=== PATIENT | male | born 1950 | race Caucasian/White ===

== ENCOUNTER 2019-07-31 07:20 | Outpatient (CLI) | payer MEDICARE, SELFPAY ==
--- NOTE | ~2019-07-31 | US_ITS ---
EXAMINATION: US abdomen complete EXAM DATE: 07/31/2019 08:17 INDICATION: Postop abdominal pain and bloating. History of melanoma. TECHNIQUE: Multiple grayscale and Doppler images of the complete abdomen were obtained (by a technolo gist who performed the scan) and subsequently reviewed. There is no prior study for comparison. FINDINGS: The abdominal aorta is normal in caliber. Visualized portion IVC is patent. The pancreatic head a nd body are normal in appearance. The pancreatic tail is not visualized. The liver has normal echogenicity and contour. There are no focal liver lesions identified. There is no evidence of intrahepatic biliary duct dilation. Portal venous flow was seen in the hepatopedal , normal direction and has normal Doppler waveform. Common bile duct measures 6 mm, which is normal. The gallbladder wall is normal in thickness, with ex pected amount of distention. No sonographic evidence of pericholecystic fluid. There is no cholelit hiases. Technologist performing exam reports patient did not demonstrate sonographic Jasso's sign. Please note that this sign is less reliable in patients who have received pain medication. Right kidney: There is normal contour and echogenicity. It measures 10.5 x 6.3 x 4.7 centimeters. There are no focal renal lesions identified. There is no hydronephrosis. Left kidney: There is normal contour and echogenicity. It measures 11.2 x 5.4 x 5.6 centimeters. T here are no focal renal lesions identified. There is no hydronephrosis. There are splenic calcified granulomata, but spleen is otherwise morphologically normal. IMPRESSION: 1. Unremarkable complete abdominal ultrasound exam. Reviewed, dictated and finalized at location A. T FINISHER
== END 2019-07-31 07:21 | disposition home or self-care (01) ==
LOC: ANHIMG 07:21
PROVIDERS: PCP Internal Medicine; Visit Provider Internal Medicine
DX: G89.18 Other acute postprocedural pain (principal); R10.9 Unspecified abdominal pain; Z86.006 Personal history of melanoma in-situ
CPT/HCPCS: 76700

== ENCOUNTER 2019-12-09 10:09 | Outpatient (CLI) | payer MEDICARE, SELFPAY ==
[2019-12-09 10:37] LABS: Add Urine Microscopic? YES; Appearance Urine Clear (Clear); Bilirubin Urine Negative (Negative); Blood Urine Negative (Negative); Color Urine Yellow (Yellow); Glucose Urine UA Negative (Negative); Ketones Urine Negative (Negative); Leukocyte Esterase Ur Trace LEU/UL (NEGATIVE); Mucus Urine Rare /lpf; Nitrate Urine Negative (Negative); Protein Urine Negative (Negative); RBC Urine 0-2 /hpf (0-2); Specific Grav Ur 1.015 (1.001-1.035); Squamous Epithelial Cell Urine Rare /hpf (Few); Urobilinogen Urine Negative mg/dL (<2.0); WBC Urine 0-3 /hpf (0-3)
== END 2019-12-09 10:10 | disposition home or self-care (01) ==
PROVIDERS: PCP Internal Medicine; Visit Provider Internal Medicine
DX: R30.0 Dysuria (principal)
CPT/HCPCS: 81001; 87086

== ENCOUNTER 2020-09-16 11:22 | Outpatient (CLI) | payer MEDICARE, SELFPAY ==
--- NOTE | ~2020-09-16 | XR_ITS ---
EXAMINATION: XR chest 2V DATE: 09/16/2020 11:33 INDICATION: Personal history of melanoma in situ. TECHNIQUE: Frontal and lateral views of the chest were obtained. COMPARISON: Chest 2 views 10/28/2018 FINDINGS: A calcified right lung nodule and calcified right hilar and mediastinal lymph nodes are con sistent with old granulomatous disease. No pleural effusion or pneumothorax. The heart size is normal . IMPRESSION: 1. No acute cardiopulmonary disease. Reviewed, dictated and finalized at location A.
== END 2020-09-16 11:23 | disposition home or self-care (01) ==
PROVIDERS: PCP Internal Medicine; Visit Provider Internal Medicine
DX: Z86.006 Personal history of melanoma in-situ (principal)
CPT/HCPCS: 71046

== ENCOUNTER 2021-06-17 07:38 | Outpatient (CLI) | payer MEDICARE, SELFPAY ==
--- NOTE | ~2021-06-17 | XR_ITS ---
EXAMINATION: XR chest 2V DATE: 06/17/2021 07:57 INDICATION: Melanoma. TECHNIQUE: Frontal and lateral views of the chest were obtained. COMPARISON: Chest 2 views 09/16/2020 FINDINGS: Calcified right lung nodules and calcified right hilar and mediastinal lymph nodes are cons istent with old granulomatous disease. No pleural effusion or pneumothorax. The heart size is normal. IMPRESSION: 1. No acute cardiopulmonary disease. Reviewed, dictated and finalized at location A. [id number] [id number] [employer] CRE[employer]
== END 2021-06-17 07:39 | disposition home or self-care (01) ==
PROVIDERS: PCP Internal Medicine; Visit Provider Internal Medicine
DX: Z86.006 Personal history of melanoma in-situ (principal)
CPT/HCPCS: 71046

== ENCOUNTER 2021-11-14 15:03 | Inpatient (IN) | payer MEDICARE, SELFPAY ==
[2021-11-14] VITALS (24 sets, daily range): BP systolic 142–167; BP diastolic 72–92; PULSE 69–89; RESP 7–26; TEMP 36.3–37.1; O2SAT 92–99; BMI 27.8
--- NOTE | ~2021-11-14 | XR_ITS ---
EXAMINATION: XR chest 2V Exam Date/Time: 11/15/2021 18:09 CDT HISTORY: leukocytosis Comparison: 11/14/2021. RESULT: Lines, tubes, and devices: None. Lungs and pleura: Clear. Chronic left posterior costophrenic angle blunting. Cardiomediastinal silhouette: Stable cardiomediastinal silhouette. Other: No acute osseous or upper abdominal finding. IMPRESSION: No acute cardiopulmonary process. Reviewed, dictated and finalized at location K.
--- NOTE | ~2021-11-14 | XR_ITS ---
XR chest 1V portable DATE: 11/14/2021 16:02 INDICATION: Dyspnea. Shortness of breath, chest pressure. Covid infection 2 weeks ago. TECHNIQUE: Portable upright AP chest on 11/14/2021 at 1556 hours COMPARISON: 06/17/2021 PA and lateral chest FINDINGS: Normal heart size. Aortic arch calcification. There is moderate elevation of the right leaf of the diaphragm. There is mild atelectasis at the righ t mid lung and right lung base. No pleural effusion or pulmonary vascular congestion or pneumothorax is detected. IMPRESSION: Moderate elevation right diaphragm Mild atelectasis in the right mid and right lower lung Reviewed, dictated and finalized at location A.
--- NOTE | ~2021-11-14 | XR_ITS ---
EXAMINATION: XR chest 1V portable DATE: 11/17/2021 00:23 INDICATION: Dyspnea. TECHNIQUE: A single frontal view of the chest was obtained. COMPARISON: Chest 2 views 11/15/2021, chest CT 09/18/2018 FINDINGS: There is chronic eventration of anterior right hemidiaphragm. There is mild atelectasis at right lung base. Calcified right lung nodules and calcified right hilar and mediastinal lymph nodes a re consistent with old granulomatous disease. No pleural effusion or pneumothorax. The heart size is normal. IMPRESSION: 1. Mild atelectasis at right lung base. Reviewed, dictated and finalized at location A.
--- NOTE | 2021-11-14 15:55 | ECG_ITS ---
Measurements Intervals [place]ane Rate: 73 P: 38 OR: 129 QRS: 2 QRSD: 102 T: 21 QT: 374 QTc: 414 Interpretive Statements SINUS RHYTHM NORMAL ECG COMPARED TO ECG 10/28/2018 11:40:40 NO SIGNIFICANT CHANGES Electronically Signed On 11-15-2021 7:22:14 CDT by Solo Lemus M.D.
--- NOTE | 2021-11-14 15:55 | ED.SOB ---
HPI - SOB/Dyspnea General Chief Complaint: Shortness of Breath/Dyspnea Stated Complaint: COVID 2WKS AGO STILL SHORT OF BREATH Time Seen by Provider: 11/14/21 15:55 History of Present Illness HPI Narrative: The patient is a 71-year-old male with a history of COPD, hypoglobulinemia, heart murmur, presenting to the emergency department for evaluation of worsening shortness of breath. Patient had COVID symptoms 2 weeks ago for which she did not require hospitalization. He has a history of a longstanding murmur. Patient was seen at [facility] ER with work-up which was ultimately negative and patient was diagnosed with congestive heart failure but was stable to go home. He was initiated on oral Lasix. Patient has been compliant with his Lasix therapy and was seen by his primary care physician Dr. Carney, today and due to the worsening dyspnea was referred to our ER for evaluation. Patient denies any chest pain. He reports worsening of shortness of breath with exertion and when he is lying flat. He does report bilateral lower extremity edema. He denies chest pain or pleuritic pain. He denies fever, chills, cough, hemoptysis. Related Data Home Medications Medication Instructions Recorded Confirmed glucosamine sulfate 500 mg tablet 500 mg PO DAILY 05/02/20 10/19/21 (Glucosamine) multivitamin 1 tablet PO DAILY 05/02/20 10/19/21 cholecalciferol (vitamin D3) 25 25 mcg PO DAILY 08/31/20 10/19/21 mcg (1,000 unit) tablet albuterol sulfate 90 mcg/actuation 1 puff inhalation Q4H PRN 11/13/21 aerosol inhaler prednisone 20 mg tablet 60 mg PO DAILY 11/13/21 furosemide 20 mg tablet (Lasix) 20 mg PO QAM 11/14/21 Allergies Allergy/AdvReac Type Severity Reaction Status Date / Time No Known Allergies Allergy Verified 11/13/21 14:51 Review of Systems Review of Systems: CONSTITUTIONAL: Denies fever, chills, or sweats. EYES: Denies visual changes, redness, or discharge. ENT: Denies rhinorrhea, congestion, sore throat, or otalgia. CARDIOVASCULAR: Denies chest pain, palpitations, reports lower leg edema RESPIRATORY: Reports cough and shortness of breath GASTROINTESTINAL: Denies abdominal pain, nausea, vomiting, or diarrhea. GENITOURINARY: Denies dysuria or hematuria. SKIN: Denies rash or itching. MUSCULOSKELETAL: Denies back pain, joint pain, or myalgia. NEUROLOGIC: Denies headache, numbness, or weakness. [facility] Past Medical History Medical History Benign prostatic hyperplasia BMI 26.0-26.9,adult COPD, mild Cough COVID-19 Elevated homocysteine Elevated LFTs Encounter for routine adult health examination without abnormal findings Encounter for special screening examination for neoplasm of prostate FHx: colon cancer Gout Heart murmur Hypoglobulinemia Hyponatremia Interstitial edema Mixed hyperlipidemia Prostate cancer screening Vitamin D deficiency Family History Family History Mother Family history of primary malignant neoplasm of liver, Onset Age: 199 Patient's mother is Family history of malignant neoplasm Father Family history of heart disease in male family member before age 55, Onset Age: 39 Patient's father is Social History Social History Smoking status: Never smoker Alcohol intake: current Substance use type: does not use Gender identity (if verbalized by the patient): Male Sexual Orientation (if Verbalized by the Patient): Straight or Heterosexual Agree to blood products: Yes Exam Narrative: GENERAL: Awake, alert, conversant HEAD: Normocephalic, atraumatic. EYES: PERRLA and EOMI. ENT: Nares clear, no rhinorrhea or epistaxis. Mucous membranes moist. NECK: Supple. CHEST: No respiratory distress, breathing even and non labored, crackles to the right lower lobe, no wheezin
[2021-11-14 16:19] LABS: Basophils Percent Auto 0.1 % (0.2-1.2); Hematocrit 36.8 % (42.0-52.0); Hemoglobin 12.2 g/dL (14.0-18.0); Immature Granulocyte Absolute 0.06 K/mm3 (0.00-0.031); Immature Granulocyte Percent A 0.6 % (0-0.5); Lymphocytes Absolute Auto 0.77 K/mm3 (0.9-3.2); Lymphocytes Percent Auto 7.5 % (18.3-44.2); Mean Corpuscular HGB Conc 33.2 g/dl (32-36); Mean Corpuscular Hemoglobin 30.9 pg (26-34); Mean Corpuscular Volume 93.2 fl (80-100); Mean Platelet Volume 9.4 fl (7.4-10.4); Monocytes Absolute Auto 0.5 K/mm3 (0.1-0.6); Monocytes Percent Auto 4.8 % (2.6-8.5); Neutrophils Absolute Auto 8.9 K/mm3 (1.3-6.7); Platelet Count Result 256 k/mm3 (150-375); Red Blood Count 3.95 M/mm3 (4.6-6.20); Red Cell Distribution Width 13.6 % (11.5-14.5); White Blood Count 10.2 K/mm3 (4.5-10.0)
[2021-11-14 16:30] LABS: Alanine Aminotransferase 101 U/L (6-50); Alkaline Phosphatase 78 U/L (38-126); Anion Gap 5 mmol/L (8-16); Aspartate Amino Transferase 63 U/L (17-59); Bilirubin,Total 0.9 mg/dL (0.2-1.3); Blood Urea Nitrogen 19 mg/dL (9-20); Calcium 8.6 mg/dL (8.4-10.2); Carbon Dioxide 28 mmol/L (22-30); Chloride 101 mmol/L (98-107); Estimated CRCL calculation 58 ml/min; Estimated Glomerular Filt Rate > 60; Glucose 129 mg/dL (65-110); Potassium 4.5 mmol/L (3.4-5.0); Sodium 134 mmol/L (137-145)
[2021-11-14 16:33] LABS: D Dimer 0.47 ug/mL (<0.48)
[2021-11-14 16:41] LABS: NT Pro B Type Natriuretic Pept 793 pg/mL (5-100); Troponin I < 0.012 ng/mL (0.000-0.034)
[2021-11-14] MEDS: FUROSEMIDE INJ 40 MG/4 ML VIAL 20 MG IV PUSH (17:53)
[2021-11-14 20:35] LABS: SARS-CoV-2 RNA PCR Positive
--- NOTE | 2021-11-14 20:48 | PC.NURSE ---
Per ED physician, the pt was Covid + approx 2 weeks ago and still testing + today 11/14/21
--- NOTE | 2021-11-14 21:57 | PM.IMHP ---
H&P: HPI History of Present Illness Date/Time: 11/14/21 21:57 Chief Complaint: Shortness of breath Narrative: 71-year-old male with past medical history of BPH, hypertension, COPD, gout, and paroxysmal atrial fibrillation who presented to the ER with persistent shortness of breath 2 weeks after having COVID. He reports that on the 58 began having nasal congestion and nonproductive cough. He thought it was his usual sinus difficulties due to recent changes in the weather. On the 27/01 his suggested that he take 1 of the COVID test that they had received in the mail and the patient tested positive for COVID. He reports that he thinks he caught COVID from his brother and [id number]. He reports that his cough has improved over time in his nasal congestion has also improved. Despite this over the last week he has developed some lower extremity swelling in feels as if his abdomen is bloated with fluid. He went to [facility] on the for similar symptoms and they did a CTA which ruled out pulmonary embolism and checked a chest x-ray. The told the patient that his lungs were full fluid. He was discharged with 20 mg of Lasix and a course of prednisone on the . Over the last week he has developed orthopnea. He denies any significant dyspnea on exertion. He called his primary care physician who instructed him to increase the Lasix to 40 mg a day and come to the ER. In the ER the patient's COVID test was confirmed positive. His BNP was mildly elevated at 793. Chest x-ray demonstrated moderate right hemidiaphragm elevation and atelectasis of the mid and lower right lung field. Patient received 20 mg of IV Lasix x1 and he reports that he has filled 2 and half urinals. Patient states that he has a long history of heart murmur. He denies any near syncopal episodes, lightheadedness, palpitations or significant weakness with activity. He denies any chest pain. The patient reports that he has received a total of 4 Pfizer COVID vaccines. His most recent vaccine was 2 days after he started having symptoms of COVID but before he actually tested for COVID. He denies prior history of CHF but was on Lasix and blood thinners for several years around 2007 due to paroxysmal atrial fibrillation. He denies any palpitations. He remains in sinus rhythm on telemetry. He denies history of stroke. The patient had normal nuclear medicine stress test in 2018. He had a normal echocardiogram in 2008 performed due to transient atrial fibrillation. Review of Systems Review of Systems: 12 systems were reviewed with pertinent positives and negatives per HPI. Except as documented in the HPI, all other systems were reviewed and are negative. [facility] Past Medical History Medical History (Updated 11/15/21 @ 03:31 by Angie Pinto DO) Atrial fib/flutter, transient (~2007) Benign prostatic hyperplasia COPD (chronic obstructive pulmonary disease) PFT 09/2018 demonstrating mild obstructive disease COVID-19 11/02/2021 Essential hypertension Gout Heart murmur History of melanoma in situ Right arm Hypoglobulinemia Hyponatremia Baseline sodium around 134 but has been as low as 125 in 2019 Mixed hyperlipidemia Vitamin D deficiency Surgical History Surgical History (Updated 11/14/21 @ 22:04 by Angie Pinto DO) H/O inguinal hernia repair (~1969) History of hemorrhoidectomy (~1980) Family History Family History (Updated 11/15/21 @ 03:25 by Angie Pinto DO) Mother Colon cancer Liver metastases Diabetes mellitus Father Family history of premature coronary artery disease, Onset Age: 39 Sibling Hx of CABG 5 vessel bypass at age 18 with repeat bypass in his 30s with another 3 vessel procedure Family history of premature coronary artery disease, Onset Age: 18 Social History Social History (Updated 11/15/21 @ 03:37 by Angie Pinto DO) Social History: The patient lives with his of 49 year
--- NOTE | 2021-11-14 23:17 | ADMGEN ---
This patient, Ermias Lindsay, was admitted to 3 [facility] Surg Room 319-01. Patient/family oriented to hospital policies and general routines including ID bracelet, bed and alarms, visiting hours, pain management, procedures, bathroom and other care routines, personal items, smoking policy, room service/diet, and visiting hours. Information on how to activate the Rapid Response Team has been discussed. Patient/Family are encouraged to report perceived risks to care and to ask questions if they do not understand what they are told or what they should do.
[2021-11-15] VITALS (10 sets, daily range): BP systolic 133–156; BP diastolic 68–89; PULSE 70–89; RESP 16–20; TEMP 36.4–37; O2SAT 91–98
[2021-11-15] MEDS: CHOLECALCIFEROL 1,000 UNITS TABLET 1000 UNITS PO ×2 (00:13→21:13)
[2021-11-15] MEDS: ATORVASTATIN 40 MG TABLET 80 MG PO ×2 (00:13→21:13)
[2021-11-15] MEDS: FOLIC ACID 0.4 MG TABLET 0.8 MG PO ×2 (00:13→21:11)
[2021-11-15] MEDS: MULTIVITAMINS THERAPEUTIC TAB (*BKC) 1 TABLET PO ×2 (00:13→21:15)
[2021-11-15] MEDS: allopurinoL 300 MG TABLET PO ×2 (00:13→21:14)
[2021-11-15] MEDS: TAMSULOSIN HCL 0.4 MG CAPSULE PO ×2 (00:14→21:15)
[2021-11-15] MEDS: CYANOCOBALAMIN 1,000 MCG TABLET 1000 MCG PO ×2 (00:14→21:14)
[2021-11-15] MEDS: POTASSIUM CHLORIDE 10 MEQ TABLET.ER PO ×2 (00:14→21:12)
[2021-11-15] MEDS: ASPIRIN 81 MG ENTERIC TABLET PO ×2 (00:14→21:14)
[2021-11-15] MEDS: lisinopriL 20 MG TABLET PO ×2 (00:14→21:12)
[2021-11-15] MEDS: DIGOXIN TAB 125 MCG TABLET PO ×2 (00:15→21:15)
--- NOTE | 2021-11-15 06:00 | ECHO_ITS ---
Patient Info Name: Ermias Lindsay Age: 71 years : 1950 Gender: Male Ht: 69 in Wt: 188 lbs BSA: 2.05 m2 HR: 75 bpm BP: 142 / 78 mmHg Heart Rhythm: Sinus Rhythm Exam Date: 11/15/2021 10:59 AM Exam Location: [facility] Pulmonary Patient Status: Outpatient Admit Date: 11/14/2021 Staff Ordering Physician: Yojana Franklin MD [employer] Consultant: Todd Jasso RDCS, RT Attending Provider: Guerda French DO Referring Physician: Noemi WANG; Exam Type: CA echo doppler color flow Study Info Indications R01.1 - Cardiac murmur, unspecified R06.00 - Dyspnea, unspecified Complete two-dimensional, color flow and Doppler transthoracic echocardiogram is performed. Strain analysis performed. Summary 1. Complete two-dimensional, color flow and Doppler transthoracic echocardiogram is performed. 2. Normal left ventricular size with mild concentric hypertrophy. Good systolic function of all segments with ejection fraction 71% and no segmental wall motion abnormalities. Diastolic dysfunction is present. Global longitudinal strain was -20%, normal. 3. Moderate left atrial enlargement. 4. Significant prolapse of the posterior mitral valve leaflet with eccentric mitral regurgitation which made it difficult to visualize the entire regurgitant jet, but the regurgitation appears moderately severe to severe. PISA was 0.6 cm. 5. Normal sinus rhythm. Left Ventricle Left ventricular chamber dimension is normal. Left ventricular systolic function is normal, estimated at >70%. There is mildly increased left ventricular wall thickness. Left ventricular septal wall motion is normal. The left ventricular diastolic function is abnormal. Global longitudinal strain is normal at 20 %. Right Ventricle Right ventricular chamber dimension is normal. Right ventricular systolic function is normal. Left Atria Left atrial chamber dimension is moderately enlarged. Right Atria Right atrial chamber dimension is normal. Aortic Valve The aortic valve is trileaflet. There is mild aortic valve sclerosis. There is no aortic valve stenosis. There is no aortic valve regurgitation. Pulmonic Valve The pulmonic valve is normal. There is no pulmonic valve stenosis. There is trace pulmonic regurgitation. Mitral Valve The mitral valve has posterior prolapse. There is no mitral valve stenosis. There is moderate to severe mitral valve regurgitation. There is mild mitral valve calcification. Tricuspid Valve The tricuspid valve leaflets are normal. There is no significant tricuspid valve stenosis. There is trace tricuspid valve regurgitation. No pulmonary hypertension, estimated pulmonary arterial systolic pressure is Empty. Pericardium/Pleural The pericardium appears normal. There is no pericardial effusion. Inferior Vena Cava Normal inferior vena cava with >50% collapse upon inspiration consistent with Empty right atrial pressure, Empty. Aorta The aortic root size at the sinus of Valsalva is normal. The prox ascending aorta size is normal. Left Ventricular Outflow Tract Name Value Normal LVOT 2D LVOT Diameter 2.0 cm LVOT Doppler
[2021-11-15 06:07] LABS: Hematocrit 35.5 % (42.0-52.0); Hemoglobin 11.9 g/dL (14.0-18.0); Mean Corpuscular HGB Conc 33.5 g/dl (32-36); Mean Corpuscular Hemoglobin 30.9 pg (26-34); Mean Corpuscular Volume 92.2 fl (80-100); Mean Platelet Volume 9.7 fl (7.4-10.4); Platelet Count Result 251 k/mm3 (150-375); Red Blood Count 3.85 M/mm3 (4.6-6.20); Red Cell Distribution Width 13.5 % (11.5-14.5)
[2021-11-15 06:26] LABS: Alanine Aminotransferase 87 U/L (6-50); Albumin Level 3.6 g/dL (3.5-5.1); Alkaline Phosphatase 69 U/L (38-126); Anion Gap 2 mmol/L (8-16); Aspartate Amino Transferase 48 U/L (17-59); Bilirubin,Total 0.8 mg/dL (0.2-1.3); Blood Urea Nitrogen 18 mg/dL (9-20); Calcium 8.6 mg/dL (8.4-10.2); Carbon Dioxide 31 mmol/L (22-30); Chloride 100 mmol/L (98-107); Estimated CRCL calculation 58 ml/min; Estimated Glomerular Filt Rate > 60; Glucose 88 mg/dL (65-110); Potassium 4.3 mmol/L (3.4-5.0); Sodium 133 mmol/L (137-145)
[2021-11-15] MEDS: ENOXAPARIN 40 MG/0.4 ML SYRINGE SUB-Q (09:19)
--- NOTE | 2021-11-15 11:02 | PCRCNOTE ---
Window of time for administration has passed. See next scheduled administration.
--- NOTE | 2021-11-15 12:20 | PM.CNCAR ---
Assessment and Plan Assessment and plan (1) Acute diastolic CHF (congestive heart failure): Code(s): I50.31 - Acute diastolic (congestive) heart failure Status: Acute Assessment and Plan: Patient presents with new onset of acute diastolic heart failure likely secondary to his mitral valve prolapse and probable severe mitral regurgitation. Responding to IV Lasix Will need to consider mitral valve repair. Discussed this with the patient and his . Will need to refer to a cardiothoracic surgeon. On alternative is a mitral valve clip, but that is generally reserved for higher surgical risk patients. This patient appears to be a good candidate for open surgical repair Will need a SKINNY and cardiac catheterization 1st. Timing of this depends a bit on his COVID and CHF recovery and how easy it is to stabilize his heart failure. It has been 2 weeks since his sx started, but he still tested positive for COVID on admisison -- though pt may test positive for a while and not be infectious. Spoke to DR. Henley and reviewed my assessment and plan. He would like pt to eventually FU w/ Dr. Alfredo Padron at [facility] for consideration of mitral valve repair. (2) Mitral valve prolapse: Code(s): I34.1 - Nonrheumatic mitral (valve) prolapse Status: Acute Assessment and Plan: Long history of mitral valve prolapse and heart murmur Echo today shows significant mitral regurgitation. (3) Essential hypertension: Code(s): I10 - Essential (primary) hypertension Status: Acute Assessment and Plan: Blood pressure runs a little high. (4) COVID-19: Code(s): U07.1 - COVID-19 Status: Acute Assessment and Plan: Symptoms began 2 weeks ago on the . Chest x-ray does not suggest pneumonia Sx worsening, though some of this is due to CHF/mitral regurgitation Not requiring O2 Still testing positive for COVID on admission History of Present Illness History of Present Illness Consult date/time: 11/15/21 12:20 Reason For Visit: Acute chf Narrative: Date of Service: 11/15/2021 Ermias Lindsay is a 71 y.o. male whom I was asked to see at the request of Dr. Franklin for my adivice and opinion regarding his new onset CHF and heart murmur. The patient has a long history of mitral valve prolapse and mitral regurgitation followed by Dr. Henley, whom he sees every 4 months. He gets an echo once a year. He has been able to do yard work and cut the grass etc. over the spring with no particular problems. When he saw Dr. Henley couple weeks ago, the murmur was louder and an echo done yesterday at [facility] showed EF 65-70% with mild mitral regurgitation. However apparently, per the patient, it was not of good quality. The patient started having symptoms of COVID on November 02 and tested positive on November 04. He was treated as an outpatient. He started having some abdominal swelling, LE swelling and shortness of breath over the last few days. He went to the emergency room at [place] on Saturday for shortness of breath and was had a CT scan which showed mild pulmonary edema with small bilateral effusions, and mild atherosclerosis of the aorta with borderline cardiomegaly. He was treated for CHF with prednisone albuterol and sent home with furosemide 20 mg daily. However that did not seem to help and Saturday night he could not lie supine because of orthopnea PND. He went to the emergency room at [facility] yesterday. Chest x-ray showed mild atelectasis but proBNP was 800. He has responded well to IV Lasix. He has not required any oxygen There has been no chest pain. He had an episode of AFib and 208 and has maintained sinus rhythm clinically since then, taking digoxin and aspirin. History of hypertension and COPD. Review of Systems Constitutional: Constit
[2021-11-15] MEDS: FUROSEMIDE INJ 40 MG/4 ML VIAL 20 MG IV PUSH (13:43)
--- NOTE | 2021-11-15 14:47 | PM.IMPN ---
Progress Note: A&P Assessment and Plan (1) Congestive heart failure: Code(s): I50.9 - Heart failure, unspecified Status: Acute Assessment and Plan: SKINNY planned (2) Heart murmur: Code(s): R01.1 - Cardiac murmur, unspecified Status: Acute Assessment and Plan: Likely secondary to severe mitral valve regurgitation (3) COVID-19: Code(s): U07.1 - COVID-19 Status: Acute Assessment and Plan: Currently had a precautions, 11 days out, asymptomatic (4) Elevated liver transaminase level: Code(s): R74.01 - Elevation of levels of liver transaminase levels Status: Acute Assessment and Plan: Likely secondary to hepatic congestion from heart failure exacerbation, monitor (5) Essential hypertension: Code(s): I10 - Essential (primary) hypertension Status: Acute Subjective Date/time seen: 11/15/21 14:47 Exam Narrative: General: Patient resting comfortably in bed, no acute distress HEENT: Atraumatic, normocephalic, mucous membranes moist CV: Regular rate and rhythm, S1, S2, loud holosystolic murmur noted, no rubs or gallops noted Lungs: Clear to auscultation bilaterally, no rales or crackles noted, no wheezes, good air entry Abdomen: Soft, nontender, nondistended, some swelling suspected Extremities: Normal to inspection, no edema noted Skin: No rashes noted, no lesions or wounds seen Psych: Euthymic, normal affect Neuro: Cranial nerves 2-12 grossly intact, strength 5/5 upper and lower extremities noted Objective Data Vital Signs Vital Signs: Vital Signs - 24 hr 11/14/21 15:22 11/14/21 15:37 11/14/21 15:30 Temperature 97.4 F L Pulse Rate 86 78 Respiratory Rate 16 12 Blood Pressure 151/85 H Pulse Oximetry 96 99 Oxygen Delivery Room Air 11/14/21 15:45 11/14/21 15:46 11/14/21 16:00 Temperature Pulse Rate 77 79 78 Respiratory Rate 20 21 H 17 Blood Pressure 161/89 H Pulse Oximetry 95 95 94 Oxygen Delivery 11/14/21 16:01 11/14/21 16:15 11/14/21 16:16 Temperature Pulse Rate 77 75 76 Respiratory Rate 20 16 21 H Blood Pressure 160/92 H 149/73 H Pulse Oximetry 94 98 94 Oxygen Delivery 11/14/21 16:30 11/14/21 16:32 11/14/21 16:45 Temperature Pulse Rate 73 75 74 Respiratory Rate 16 7 L 16 Blood Pressure 142/72 H Pulse Oximetry 98 94 95 Oxygen Delivery 11/14/21 16:46 11/14/21 17:02 11/14/21 17:15 Temperature Pulse Rate 76 75 71 Respiratory Rate 14 15 18 Blood Pressure 150/80 H Pulse Oximetry 94 97 95 Oxygen Delivery 11/14/21 17:16 11/14/21 17:17 11/14/21 17:32 Temperature Pulse Rate 74 74 76 Respiratory Rate 12 14 Blood Pressure 167/87 H Pulse Oximetry 92 97 95 Oxygen Delivery 11/14/21 17:53 11/14/21 18:00 11/14/21 18:15 Temperature Pulse Rate 73 71 69 Respiratory Rate 12 15 11 L Blood Pressure Pulse Oximetry 97 95 97 Oxygen Delivery 11/14/21 18:30 11/14/21 18:45 11/14/21 21:23 Temperature Pulse Rate 72 89 81 Respiratory Rate 15 26 H 20 Blood Pressure 157/79 H Pulse Oximetry 98 97 93 Oxygen Delivery 11/14/21 21:30 11/14/21 23:45 11/15/21 00:15 Temperature 98.7 F Pulse Rate 83 89 Respiratory Rate 18 Blood Pressure 153/89 H Pulse Oximetry 98 Oxygen Delivery Room Air 11/15/21 00:00 11/15/21 04:00 11/15/21 04:00 Temperature 98.6 F Pulse Rate 79 81 72 Respiratory Rate 18 Blood Pressure 142/78 H Pulse Oximetry 91 Oxygen Delivery 11/15/21 08:00 11/15/21 12:00 Temperature Pulse Rate 80 70 Respiratory Rate Blood Pressure Pulse Oximetry Oxygen Delivery Intake/Output Intake/Output: Intake & Output 11/12/21 11/13/21 11/14/21 11/15/21 23:59 23:59 23:59 23:59 Intake Total 1740 Output Total 1000 2700 Balance -1000 -960 Meds/Results Medications: Active Medications Generic Name Dose Route Start Last Admin Trade Name Freq PRN Reason Stop Dose
[2021-11-15 15:23] LABS: Basophils Percent Auto 0.2 % (0.2-1.2); Eosinophils Absolute Auto 0.3 K/mm3 (0-0.3); Eosinophils Percent Auto 2.2 % (0-4.4); Hematocrit 39.1 % (42.0-52.0); Hemoglobin 12.8 g/dL (14.0-18.0); Immature Granulocyte Absolute 0.07 K/mm3 (0.00-0.031); Immature Granulocyte Percent A 0.6 % (0-0.5); Lymphocytes Absolute Auto 2.04 K/mm3 (0.9-3.2); Lymphocytes Percent Auto 16.1 % (18.3-44.2); Mean Corpuscular HGB Conc 32.7 g/dl (32-36); Mean Corpuscular Volume 94.7 fl (80-100); Mean Platelet Volume 9.8 fl (7.4-10.4); Monocytes Absolute Auto 1.3 K/mm3 (0.1-0.6); Monocytes Percent Auto 10.5 % (2.6-8.5); Neutrophils Absolute Auto 8.9 K/mm3 (1.3-6.7); Neutrophils Percent Auto 70.4 % (45.5-73.1); Platelet Count Result 275 k/mm3 (150-375); Red Blood Count 4.13 M/mm3 (4.6-6.20); Red Cell Distribution Width 13.8 % (11.5-14.5); White Blood Count 12.7 K/mm3 (4.5-10.0)
[2021-11-15 15:32] LABS: Alanine Aminotransferase 100 U/L (6-50); Albumin Level 4.1 g/dL (3.5-5.1); Alkaline Phosphatase 77 U/L (38-126); Anion Gap 5 mmol/L (8-16); Aspartate Amino Transferase 55 U/L (17-59); Blood Urea Nitrogen 17 mg/dL (9-20); Calcium 8.8 mg/dL (8.4-10.2); Carbon Dioxide 32 mmol/L (22-30); Chloride 95 mmol/L (98-107); Estimated CRCL calculation 64 ml/min; Estimated Glomerular Filt Rate > 60; Glucose 90 mg/dL (65-110); Sodium 132 mmol/L (137-145)
[2021-11-15 17:23] LABS: Appearance Urine Clear (Clear); Bilirubin Urine Negative (Negative); Blood Urine Negative (Negative); Color Urine Yellow (Yellow); Glucose Urine UA Negative (Negative); Ketones Urine Negative (Negative); Leukocyte Esterase Ur Negative LEU/UL (NEGATIVE); Nitrate Urine Negative (Negative); Protein Urine Negative (Negative); Urobilinogen Urine 0.2 mg/dL (<2.0); pH Urine 6.5 (5.0-9.0)
[2021-11-15 17:43] LABS: Add Urine Microscopic? NO
[2021-11-15 18:02] LABS: Lactic Acid Reflex 1.1 mmol/L (0.7-2.0)
[2021-11-16] VITALS (11 sets, daily range): BP systolic 129–145; BP diastolic 73–78; PULSE 65–90; RESP 16–22; TEMP 36.5–37.3; O2SAT 97–98
[2021-11-16 08:29] LABS: Basophils Percent Auto 0.2 % (0.2-1.2); Eosinophils Absolute Auto 0.4 K/mm3 (0-0.3); Immature Granulocyte Absolute 0.06 K/mm3 (0.00-0.031); Immature Granulocyte Percent A 0.6 % (0-0.5); Lymphocytes Absolute Auto 1.99 K/mm3 (0.9-3.2); Lymphocytes Percent Auto 18.8 % (18.3-44.2); Mean Corpuscular HGB Conc 32.6 g/dl (32-36); Mean Corpuscular Volume 95.1 fl (80-100); Mean Platelet Volume 9.4 fl (7.4-10.4); Monocytes Absolute Auto 1.1 K/mm3 (0.1-0.6); Monocytes Percent Auto 9.9 % (2.6-8.5); Neutrophils Absolute Auto 7.1 K/mm3 (1.3-6.7); Neutrophils Percent Auto 66.5 % (45.5-73.1); Platelet Count Result 271 k/mm3 (150-375); Red Blood Count 4.52 M/mm3 (4.6-6.20); Red Cell Distribution Width 13.6 % (11.5-14.5); White Blood Count 10.6 K/mm3 (4.5-10.0)
[2021-11-16 08:39] LABS: Alanine Aminotransferase 95 U/L (6-50); Albumin Level 4.4 g/dL (3.5-5.1); Alkaline Phosphatase 81 U/L (38-126); Anion Gap 5 mmol/L (8-16); Aspartate Amino Transferase 44 U/L (17-59); Blood Urea Nitrogen 15 mg/dL (9-20); Calcium 9.5 mg/dL (8.4-10.2); Carbon Dioxide 31 mmol/L (22-30); Chloride 97 mmol/L (98-107); Estimated CRCL calculation 58 ml/min; Estimated Glomerular Filt Rate > 60; Glucose 98 mg/dL (65-110); Potassium 4.6 mmol/L (3.4-5.0); Sodium 133 mmol/L (137-145)
[2021-11-16] MEDS: UMECLIDINIUM BROMIDE 62.5 MCG ELLIPTA 1 PUFF INHALATION (08:41)
[2021-11-16] MEDS: ENOXAPARIN 40 MG/0.4 ML SYRINGE SUB-Q (09:15)
--- NOTE | 2021-11-16 13:55 | PM.PNCARD ---
Progress Note: A&P Assessment and Plan (1) Acute diastolic CHF (congestive heart failure): Code(s): I50.31 - Acute diastolic (congestive) heart failure Status: Acute (2) Mitral valve prolapse: Code(s): I34.1 - Nonrheumatic mitral (valve) prolapse Status: Acute Plan - acute diastolic heart failure exacerbation. - severe mitral valve regurgitation. - history of recent COVID infection November 04, 2021 - history of hypertension - so this 71-year-old patient who had a 2nd episode of acute heart failure exacerbation. Recent COVID infection. Turns out to be having moderate to severe mitral valve regurgitation moderately enlarged left atrium. His left ventricular functions normal. Today on physical examination he does have some right basal crackles. - add Lasix 20 mg p.o. b.i.d. - continue lisinopril 20 mg night. - if his blood pressure is still high tomorrow we will need to add calcium channel nicole. It is extremely important that in patients with mitral regurgitation systolic blood pressure to be controlled. - Patient will need transesophageal echocardiogram which will be arranged as an outpatient. Also he need cardiac catheterization possible referralfor mitral valve surgery Subjective Date/time seen: 11/16/21 13:55 Review of Systems Constitutional: Constitutional: Reports fatigue and Reports lethargy Eyes: Eyes: Reports no additional eye complaints ENT: Denies epistaxis Cardiovascular: Cardiovascular: Denies chest pain, Reports pedal edema, Reports leg edema, Denies lightheadedness and Denies palpitations Respiratory: Respiratory: Reports dyspnea and Reports dyspnea on exertion Gastrointestinal: Gastrointestinal: Reports as per HPI (Abdominal swelling and bloating, tightness. ) Musculoskeletal: Musculoskeletal: Reports no additional musculoskeletal complaints Integumentary/Breasts: Skin/Breast: Denies rash Neurologic: Denies confusion Psychiatric: Psychiatric: Denies behavioral changes Exam Narrative: General: Patient resting comfortably in bed, no acute distress HEENT: Atraumatic, normocephalic, mucous membranes moist CV: Regular rate and rhythm, S1, S2, loud holosystolic murmur noted, no rubs or gallops noted Lungs: crackles at the right lung base. Abdomen: Soft, nontender, nondistended, some swelling suspected Extremities: Normal to inspection, no edema noted Skin: No rashes noted, no lesions or wounds seen Psych: Euthymic, normal affect Neuro: Cranial nerves 2-12 grossly intact, strength 5/5 upper and lower extremities noted Hematology: no active bleeding Objective Data Vital Signs Vital Signs: Vital Signs - 24 hr 11/15/21 16:00 11/15/21 21:15 11/15/21 21:59 Temperature 36.4 C Pulse Rate 70 76 76 Respiratory Rate 16 Blood Pressure 156/89 H Pulse Oximetry 97 Oxygen Delivery 11/15/21 20:00 11/15/21 20:00 11/16/21 00:00 Temperature Pulse Rate 75 76 81 Respiratory Rate 16 Blood Pressure Pulse Oximetry 97 Oxygen Delivery Room Air 11/16/21 04:00 11/16/21 06:00 11/16/21 08:00 Temperature 37.3 C Pulse Rate 65 71 80 Respiratory Rate 16 Blood Pressure 145/73 H Pulse Oximetry 98 Oxygen Delivery 11/16/21 12:00 Temperature Pulse Rate 70 Respiratory Rate Blood Pressure Pulse Oximetry Oxygen Delivery Intake/Output Intake/Output: Intake & Output 11/13/21 11/14/21 11/15/21 11/16/21 23:59 23:59 23:59 23:59 Intake Total 2280 200 Output Total 1000 4980 1650 Balance -1000 -0251 -5319 Meds/Results Medications: Active Medications Generic Name Dose Route Start Last Admin Trade Name Freq PRN Reason Stop Dose Admin Acetaminophen 650 mg 11/14/21 18:16 Acetaminophen 325 Mg Tablet PO Q4H PRN Mild Pain (1-3) or Fever Albuterol 2 puff 11/14/21 22:16 Albuterol Sulfate (*Sp) Aerosol 1 Puff INHALATION Q6HRT PRN Shortness Of Breath Allopurinol 300 mg
[2021-11-16 14:18] LABS: Anion Gap 4 mmol/L (8-16); Blood Urea Nitrogen 14 mg/dL (9-20); Calcium 8.5 mg/dL (8.4-10.2); Carbon Dioxide 31 mmol/L (22-30); Chloride 95 mmol/L (98-107); Estimated CRCL calculation 58 ml/min; Estimated Glomerular Filt Rate > 60; Glucose 128 mg/dL (65-110); Potassium 4.1 mmol/L (3.4-5.0); Sodium 130 mmol/L (137-145)
--- NOTE | 2021-11-16 15:51 | PM.IMPN ---
Progress Note: A&P Assessment and Plan (1) Congestive heart failure: Code(s): I50.9 - Heart failure, unspecified Status: Acute Assessment and Plan: SKINNY planned as outpatient, likely secondary to severe mitral valve regurgitation, exacerbated by COVID infection, started on Lasix 20 mg p.o. b.i.d. by Cardiology (2) Heart murmur: Code(s): R01.1 - Cardiac murmur, unspecified Status: Acute Assessment and Plan: Likely secondary to severe mitral valve regurgitation, maintain normotensive as much as possible (3) COVID-19: Code(s): U07.1 - COVID-19 Status: Acute Assessment and Plan: Currently out of precautions, 11 days out, asymptomatic (4) Elevated liver transaminase level: Code(s): R74.01 - Elevation of levels of liver transaminase levels Status: Acute Assessment and Plan: Likely secondary to hepatic congestion from heart failure exacerbation, monitor, recheck in the a.m. (5) Essential hypertension: Code(s): I10 - Essential (primary) hypertension Status: Acute (6) Hyponatremia: Code(s): E87.1 - Hypo-osmolality and hyponatremia Status: Acute Assessment and Plan: Sodium is 130 today, down from 133 with the fluid restriction, consult Nephrology, suspect Is and Os are inaccurate, patient appears euvolemic, some concern that Lasix will worsen the hyponatremia, we will defer diuresis management to Nephrology and Cardiology Subjective Date/time seen: 11/16/21 15:51 Interval history: Patient resting comfortably any complaints. No nausea vomiting diarrhea. States the swelling is belly seems resolved. The swelling in his ankles. No chest pain or shortness of breath. States he does have some exertional dyspnea, this has been chronic since having COVID. Denies fevers or chills overnight events. Exam Narrative: General: Patient resting comfortably in bed, no acute distress HEENT: Atraumatic, normocephalic, mucous membranes moist CV: Regular rate and rhythm, S1, S2, loud holosystolic murmur noted, no rubs or gallops noted Lungs: Good air entry, fine crackles at bases Abdomen: Soft, nontender, nondistended, some swelling suspected Extremities: Normal to inspection, no edema noted Skin: No rashes noted, no lesions or wounds seen Psych: Euthymic, normal affect Neuro: Cranial nerves 2-12 grossly intact, strength 5/5 upper and lower extremities noted Objective Data Vital Signs Vital Signs: Vital Signs - 24 hr 11/15/21 16:00 11/15/21 21:15 11/15/21 21:59 Temperature 97.6 F Pulse Rate 70 76 76 Respiratory Rate 16 Blood Pressure 156/89 H Pulse Oximetry 97 Oxygen Delivery 11/15/21 20:00 11/15/21 20:00 11/16/21 00:00 Temperature Pulse Rate 75 76 81 Respiratory Rate 16 Blood Pressure Pulse Oximetry 97 Oxygen Delivery Room Air 11/16/21 04:00 11/16/21 06:00 11/16/21 08:00 Temperature 99.1 F Pulse Rate 65 71 80 Respiratory Rate 16 Blood Pressure 145/73 H Pulse Oximetry 98 Oxygen Delivery 11/16/21 12:00 Temperature Pulse Rate 70 Respiratory Rate Blood Pressure Pulse Oximetry Oxygen Delivery Intake/Output Intake/Output: Intake & Output 11/13/21 11/14/21 11/15/21 11/16/21 23:59 23:59 23:59 23:59 Intake Total 2280 200 Output Total 1000 4980 1650 Balance -1000 -0600 -7540 Meds/Results Medications: Active Medications Generic Name Dose Route Start Last Admin Trade Name Freq PRN Reason Stop Dose Admin Acetaminophen 650 mg 11/14/21 18:16 Acetaminophen 325 Mg Tablet PO Q4H PRN Mild Pain (1-3) or Fever Albuterol 2 puff 11/14/21 22:16 Albuterol Sulfate (*Sp) Aerosol 1 Puff INHALATION Q6HRT PRN Shortness Of Breath Allopurinol 300 mg 11/14/21 23:30 11/15/21 21:14 Allopurinol 300 Mg Tablet PO 300 mg HS AVRIL Administration Aspirin 81 mg 11/14/21 23:30 11/15/21 21:14 Aspirin 81 Mg Enteric Tablet
[2021-11-16] MEDS: SODIUM CHLORIDE 0.9% IV 1,000 ML 999 ML IV CONT (16:26)
[2021-11-16] MEDS: FUROSEMIDE 20 MG TABLET PO (17:31)
[2021-11-16] MEDS: ATORVASTATIN 40 MG TABLET 80 MG PO (19:57)
[2021-11-16] MEDS: TAMSULOSIN HCL 0.4 MG CAPSULE PO (19:59)
[2021-11-16] MEDS: POTASSIUM CHLORIDE 10 MEQ TABLET.ER PO (19:59)
[2021-11-16] MEDS: ASPIRIN 81 MG ENTERIC TABLET PO (19:59)
[2021-11-16] MEDS: allopurinoL 300 MG TABLET PO (20:00)
[2021-11-16] MEDS: FOLIC ACID 0.4 MG TABLET 0.8 MG PO (20:00)
[2021-11-16] MEDS: DIGOXIN TAB 125 MCG TABLET PO (20:00)
[2021-11-16] MEDS: lisinopriL 20 MG TABLET PO (20:00)
[2021-11-16] MEDS: CYANOCOBALAMIN 1,000 MCG TABLET 1000 MCG PO (20:02)
[2021-11-16] MEDS: CHOLECALCIFEROL 1,000 UNITS TABLET 1000 UNITS PO (20:02)
[2021-11-16] MEDS: MULTIVITAMINS THERAPEUTIC TAB (*BKC) 1 TABLET PO (20:03)
[2021-11-16] MEDS: BENZONATATE 100 MG CAPSULE 200 MG PO (20:03)
[2021-11-16] MEDS: ALBUTEROL SULFATE (*SP) AEROSOL 1 PUFF 2 PUFF INHALATION (22:25)
[2021-11-16] MEDS: ALBUTEROL SULFATE NEB 2.5 MG/3 ML INH 5 MG INHALATION (23:26)
[2021-11-16] MEDS: IPRATROPIUM BR 0.02% INH SOLN 0.5 MG/2.5 ML VIAL INHALATION (23:27)
[2021-11-17] VITALS (10 sets, daily range): BP systolic 109–122; BP diastolic 61–64; PULSE 73–101; RESP 16–18; TEMP 36.2–36.4; O2SAT 96
--- NOTE | 2021-11-17 | P.PNCROSS_ITS ---
Event Note Event Note Event Note: 11/16/2021 at 23:00 The patient went up to the nurses station complaining of severe shortness of breath. He was demanding that he be transferred immediately for evaluation for his mitral valve replacement. Patient had labored respirations and is tachypneic. The patient was assisted back to his room. The patient had just had an albuterol inhaler prior to coming to the nurse's station without relief in symptoms. I was at the nurses station when the patient came up to the nurses station. He reviewed the patient's chart and went to evaluate the patient. Patient reported worsening orthopnea this evening. He reported his symptoms had not improved with the albuterol inhaler. He does have a history of COPD. Colten it is stat albuterol and Atrovent treatment. The patient reported the neb treatment did help his symptoms. He had some crackles at the bases but no active wheezing. The patient had had good urine output and in fact his urinal was full at bedside. He was negative 4.3 L since admission. Patient did have some mild JVD on exam. He reports increased abdominal distension today. A repeat chest x-ray was performed which demonstrated no acute process The patient was quite frustrated with recurrent shortness of breath. He states that he does not want to wait until next week for a heart catheterization. I explained to the patient that I could not Aguilar the process of his evaluation. I also explained that we could not taken to heart catheterization if he could not lay flat on the table with his shortness of breath. I explained that could not transfer the patient in the middle the night for surgical evaluation as he would still need a SKINNY and heart catheterization prior to surgical evaluation. He verbalized understanding. Assessment and plan: 1. Acute diastolic heart failure with increasing respiratory distress--I suspect the patient's dyspnea is multifactorial due to combination of anxiety, heart failure year/valvular disease and mild component of COPD. Although patient did report subjective improvement with nebulizer treatment he is not having after active wheezing to suggest COPD exacerbation. Will hold off on adding Solu- Medrol. Scheduled ambulated have been ordered. Give the patient 1 time dose of IV Lasix 40 mg. 2. Anxiety-- the patient does seem mildly anxious since fell given patient 1 time dose of Xanax and see if this does not improve some of his symptoms. 30 minute spent critical care activities. This case had a high probability of a clinically significant, sudden, or life threatening deterioration of this patient's condition which required my full and direct attention, intervention and personal management.
[2021-11-17] MEDS: guaiFENesin 12 HR 600 MG TABCR 1200 MG PO ×2 (00:18→08:30)
[2021-11-17] MEDS: FUROSEMIDE INJ 40 MG/4 ML VIAL IV PUSH (00:19)
[2021-11-17] MEDS: ALPRAZolam (*CRX) 0.5 MG TABLET PO (00:24)
[2021-11-17] MEDS: IPRATROPIUM BR 0.02% INH SOLN 0.5 MG/2.5 ML VIAL INHALATION ×3 (02:50→13:53)
[2021-11-17] MEDS: ALBUTEROL SULFATE NEB 2.5 MG/3 ML INH 5 MG INHALATION ×3 (02:51→13:54)
[2021-11-17 06:42] LABS: Alanine Aminotransferase 65 U/L (6-50); Albumin Level 3.7 g/dL (3.5-5.1); Alkaline Phosphatase 67 U/L (38-126); Anion Gap 7 mmol/L (8-16); Aspartate Amino Transferase 30 U/L (17-59); Bilirubin,Total 0.6 mg/dL (0.2-1.3); Blood Urea Nitrogen 14 mg/dL (9-20); Calcium 8.7 mg/dL (8.4-10.2); Carbon Dioxide 29 mmol/L (22-30); Chloride 98 mmol/L (98-107); Estimated CRCL calculation 58 ml/min; Estimated Glomerular Filt Rate > 60; Glucose 117 mg/dL (65-110); Potassium 4.2 mmol/L (3.4-5.0); Sodium 134 mmol/L (137-145)
[2021-11-17] MEDS: FUROSEMIDE 20 MG TABLET PO (08:30)
[2021-11-17] MEDS: ENOXAPARIN 40 MG/0.4 ML SYRINGE SUB-Q (08:30)
--- NOTE | 2021-11-17 09:59 | PM.PNCARD ---
Progress Note: A&P Assessment and Plan (1) Mitral valve prolapse: Code(s): I34.1 - Nonrheumatic mitral (valve) prolapse Status: Acute Plan 71-year-old man with: Chronic mitral regurgitation appears to have become more severe he now has decompensated congestive heart failure with 2 recent hospital presentations in the last couple of weeks. He also tested positive for COVID couple of weeks ago and still tested positive on admission here several days ago. He appears to be stable this morning I understand his concerns and is not unreasonable to transfer where cardiothoracic surgery consultation is available and his preop SKINNY and catheterization can take place in a more expeditious fashion. The plans initially set in place by my partner was to proceed with all of this as an outpatient which would likely take several weeks to occur. The patient is not satisfied with that timeline. I will contact the [facility] transfer line today and see if we can effect a transfer Solo Lemus MD [facility] Subjective Date/time seen: Date of service: 11/17/21 09:59 Interval history: Follow-up visit in this 71-year-old man with: Congestive heart failure with severe mitral valve regurgitation. He states that last night he had another bad night with a lot of shortness of breath awakening from sleep had received some breathing treatments in the middle of the night. Appears to be comfortable at this time. Long discussion with the patient about his valvular heart disease. Because of these symptoms and to recent hospital visits he would like to proceed more expeditiously regarding preop evaluation and mitral valve repair. This is not unreasonable. Patient needs transesophageal echo as well as a right left heart catheterization and then cardiothoracic surgery consultation. His PCP has recommended a specific cardiac surgeon, Dr. Padron at [facility]. In order to be as expeditiously as possible he would like to be transferred over there and have the preop workup completed and then have surgical consultation as an inpatient. Exam Const: General: comfortable and no acute distress HENMT: Mouth: Yes moist mucous membranes Eyes: Sclera: sclerae normal Pupils: Equal, round and reactive pupils present Neck: Neck: supple and no JVD Resp: Effort & Inspection: normal respiratory effort Other: Patient has right basilar crackles no wheezing no rhonchi Cardio: Rate: regular rate and tachycardic Rhythm: regular rhythm GI: GI Palp: Yes Soft to palpation Auscultation: normal bowel sounds Skin: General skin exam: normal color Extrem: General: normal to inspection Objective Data Vital Signs Vital Signs: Vital Signs - 24 hr 11/16/21 12:00 11/16/21 15:25 11/16/21 16:00 Temperature 36.5 C Pulse Rate 70 75 90 Respiratory Rate 20 Blood Pressure 129/74 Pulse Oximetry 97 Oxygen Delivery 11/16/21 20:00 11/16/21 22:00 11/16/21 23:28 Temperature 36.8 C Pulse Rate 76 78 78 Respiratory Rate 16 22 H Blood Pressure 135/78 Pulse Oximetry 97 Oxygen Delivery 11/17/21 02:53 11/16/21 23:43 11/17/21 03:07 Temperature Pulse Rate 73 82 76 Respiratory Rate 18 20 18 Blood Pressure Pulse Oximetry Oxygen Delivery 11/16/21 20:00 11/16/21 20:00 11/17/21 05:05 Temperature 36.2 C L Pulse Rate 80 76 101 H Respiratory Rate 18 16 Blood Pressure 109/64 Pulse Oximetry 97 96 Oxygen Delivery Room Air 11/17/21 08:56 11/17/21 09:07 11/17/21 08:00 Temperature Pulse Rate 81 83 83 Respiratory Rate 18 18 18 Blood Pressure Pulse Oximetry 96 Oxygen Delivery Room Air Intake/Output Intake/Output: Intake & Output 11/14/21 11/15/21 11/16/21 11/17/21 23:59 23:59 23:59 23:59 Intake Total 2280 1980 748 Output Total 9103 7833 2030 8371 Ufayeyf -3553 -9067 -880 -6111 Meds/Results Medications: Active Medications Generic Name Dose Route Start Last Admin Trade Name Krysta NI
[2021-11-17] MEDS: UMECLIDINIUM BROMIDE 62.5 MCG ELLIPTA 1 PUFF INHALATION (11:13)
--- NOTE | 2021-11-17 12:29 | PCCCNOTE ---
On 11/17/21, the student, [Kristy Land], provided care and completed [facility] documentation on this patient. I have reviewed the student's documentation and agree with the findings.
--- NOTE | 2021-11-17 13:40 | PM.CNNEP ---
Assessment and Plan Additional Plan 1. Ermias has hyponatremia. Looking back in the records this is been going on since 2010. It is always been only mild hyponatremia usually around 130-135. He is on some diuretics but usually loop diuretics do not lower the sodium unless he is frankly dehydrated. He does not appear to be this way. Because his sodium is low chronically that is unlikely that cancer some unknown brain tumor is causing the low sodium. It would have reared its ugly head by now. Hypothyroidism or mild adrenal insufficiency could do this. Chronic pre renal azotemia could do this as well if his cardiac disease has been this bad for the past 11 years. At this point will get a TSH, cortisol, SPE, serum and urine osmolality. He is on a 1500cc fluid restriction. This morning's value was better so I think we can just leave him on this. I told at home that he should just drink if he is thirsty and not if he is not. If he gets into trouble with some sort of GI illness or possibly on high-dose diuretics than the sodium level could become a problem. I asked and to me mindful of the sodium if he does get sick so that he can talk with Dr. Henley about this in the future. 2. Aortic stenosis. He is being transferred to [facility] for definitive therapy for this. 3. Hypertension blood pressure is under good control 4. COPD this is compensated. He is on inhalers. History of Present Illness Reason for Consult Consult date: 11/17/21 Chief Complaint Chief complaint: Acute chf History of Present Illness Narrative: Ermias is a very pleasant 71-year-old gentleman has multiple medical problems including BPH, hypertension, COPD, gout, paroxysmal atrial fibrillation. the patient had cough and some shortness of breath a couple of weeks ago. He went to [facility] and they did a CT angio which ruled out pulmonary embolism. Chest x-ray was apparently okay. They treated with antibiotics and prednisone. He was discharged. The patient was diagnosed with COVID a couple of weeks ago. He talked with Dr. Henley who increased his Lasix. Then he came to the emergency room here because of shortness of breath. Who is diagnosed with congestive heart failure. The patient was seen by cardiology to follow up with the shortness of breath. He does have aortic stenosis and so is apparently going to go to [facility] have this taking care of. Last night he was short of breath so he got a dose of IV Lasix. In the meantime he was found to have a low sodium. This had been relatively stable until yesterday it was down to 130 so renal consultation was requested. He does not take any antidepressants or narcotics. He is on diuretics at home. He does not take nonsteroidal anti-inflammatory agents. He does have COPD. He does not have a history of cancer or any [employer] disorders. Looking back in the records his sodiums have been low, around 130, since about 2010. Even in 2006 he had a couple of draws that had demonstrated low sodium. Review of Systems Constitutional: Constitutional: Reports no additional constitutional complaints Eyes: Eyes: Reports no additional eye complaints ENT: Reports system reviewed and no additional complaints, except as documented Cardiovascular: Cardiovascular: Reports no additional cardiovascular complaints Respiratory: Respiratory: Reports no additional respiratory complaints Gastrointestinal: Gastrointestinal: Reports no additional gastrointestinal complaints Genitourinary: Genitourinary: Reports no additional male genitourinary complaints Musculoskeletal: Musculoskeletal: Reports no additional musculoskeletal complaints Integumentary/Breasts: Skin/Breast: Reports system reviewed and no additional complaints, except as docu Neurologic: Reports system reviewed and no additional complaints, except as documented Psychiatric: Psychiatric: Reports no additional psychiatric
--- NOTE | 2021-11-17 14:16 | PM.IMPN ---
Progress Note: A&P Assessment and Plan (1) Congestive heart failure: Code(s): I50.9 - Heart failure, unspecified Status: Acute Assessment and Plan: Continue Lasix per Cardiology, appears euvolemic today, fluid restriction for hyponatremia also continued, plan is to transfer to [facility] for severe mitral regurgitation causing recurrent symptoms (2) Heart murmur: Code(s): R01.1 - Cardiac murmur, unspecified Status: Acute Assessment and Plan: Likely secondary to severe mitral valve regurgitation, maintain normotensive as much as possible (3) COVID-19: Code(s): U07.1 - COVID-19 Status: Acute Assessment and Plan: Currently out of precautions, asymptomatic (4) Elevated liver transaminase level: Code(s): R74.01 - Elevation of levels of liver transaminase levels Status: Acute Assessment and Plan: Likely secondary to hepatic congestion from heart failure exacerbation, monitor, improving (5) Essential hypertension: Code(s): I10 - Essential (primary) hypertension Status: Acute (6) Hyponatremia: Code(s): E87.1 - Hypo-osmolality and hyponatremia Status: Acute Assessment and Plan: Sodium improved back up to 134 today, appreciate nephrology consultation, continue fluid restriction and recheck in the a.m. Subjective Date/time seen: 11/17/21 14:16 Review of Systems Review of Systems: Twelve point review of systems was reviewed and is negative except as noted in the HPI Exam Narrative: General: Patient resting comfortably in bed, no acute distress HEENT: Atraumatic, normocephalic, mucous membranes moist CV: Regular rate and rhythm, S1, S2, loud holosystolic murmur noted, no rubs or gallops noted Lungs: Good air entry, fine crackles at bases Abdomen: Soft, nontender, nondistended, some swelling suspected Extremities: Normal to inspection, no edema noted Skin: No rashes noted, no lesions or wounds seen Psych: Euthymic, normal affect Neuro: Cranial nerves 2-12 grossly intact, strength 5/5 upper and lower extremities noted Objective Data Vital Signs Vital Signs: Vital Signs - 24 hr 11/16/21 15:25 11/16/21 16:00 11/16/21 20:00 Temperature 97.7 F Pulse Rate 75 90 76 Respiratory Rate 20 Blood Pressure 129/74 Pulse Oximetry 97 Oxygen Delivery 11/16/21 22:00 11/16/21 23:28 11/17/21 02:53 Temperature 98.3 F Pulse Rate 78 78 73 Respiratory Rate 16 22 H 18 Blood Pressure 135/78 Pulse Oximetry 97 Oxygen Delivery 11/16/21 23:43 11/17/21 03:07 11/16/21 20:00 Temperature Pulse Rate 82 76 80 Respiratory Rate 20 18 Blood Pressure Pulse Oximetry Oxygen Delivery 11/16/21 20:00 11/17/21 05:05 11/17/21 08:56 Temperature 97.1 F L Pulse Rate 76 101 H 81 Respiratory Rate 18 16 18 Blood Pressure 109/64 Pulse Oximetry 97 96 Oxygen Delivery Room Air 11/17/21 09:07 11/17/21 08:00 11/17/21 11:15 Temperature Pulse Rate 83 83 84 Respiratory Rate 18 18 18 Blood Pressure Pulse Oximetry 96 Oxygen Delivery Room Air 11/17/21 13:42 11/17/21 13:58 11/17/21 14:08 Temperature 97.5 F L Pulse Rate 97 91 94 Respiratory Rate 18 18 18 Blood Pressure 122/61 Pulse Oximetry 96 Oxygen Delivery Intake/Output Intake/Output: Intake & Output 11/14/21 11/15/21 11/16/21 11/17/21 23:59 23:59 23:59 23:59 Intake Total 2280 1980 984 Output Total 1000 3243 5102 3108 Balance -1000 -2700 -470 -2116 Meds/Results Medications: Active Medications Generic Name Dose Route Start Last Admin Trade Name Freq PRN Reason Stop Dose Admin Acetaminophen 650 mg 11/14/21 18:16 Acetaminophen 325 Mg Tablet PO Q4H PRN Mild Pain (1-3) or Fever Albuterol 5 mg 11/16/21 23:04 11/17/21 13:54 Albuterol Sulfate Neb 2.5 Mg/3 Ml Inh INHALATION 5 mg Q6HRT AVRIL Administration Allopurinol 300 mg 11/14/21 23:30 11/16/21 20:00 Allopurin
[2021-11-17 15:59] LABS: Sodium Urine Random 82 meq/L
[2021-11-27 14:57] LABS: Osmolality, Urine 515 mOsm/kg (50-1200)
--- NOTE | 2021-12-05 07:44 | PM.TDS ---
Transfer Discharge Sum: Prov Provider Date of admission: 11/17/21 09:33 Primary care physician: Rommel Henley MD Admitting clinician: Zuleika Mcmahon MD Consults: 11/14/21 Consult to Physician Routine Comment: Consulting Provider: Alejandro Kern Reason for consultation: acute chf, murmur Has provider been notified: Yes 11/16/21 Consult to Physician Routine Comment: Spoke w/office 15:23 (, [place]) Consulting Provider: Alberto Godfrey bilingual call center representative/MD group to consult: nephrology Reason for consultation: hyponatremia Has provider been notified: Yes DS: Admitting Diagnosis Discharge Date 11/17/21 Admitting Diagnosis Shortness of breath DS: Discharge Diagnosis Discharge Diagnosis (1) Congestive heart failure: Code(s): I50.9 - Heart failure, unspecified Status: Acute Assessment and Plan: Continue Lasix per Cardiology, appears euvolemic today, fluid restriction for hyponatremia also continued, plan is to transfer to [facility] for severe mitral regurgitation causing recurrent symptoms (2) Heart murmur: Code(s): R01.1 - Cardiac murmur, unspecified Status: Acute Assessment and Plan: Likely secondary to severe mitral valve regurgitation, maintain normotensive as much as possible (3) COVID-19: Code(s): U07.1 - COVID-19 Status: Acute Assessment and Plan: Currently out of precautions, asymptomatic (4) Elevated liver transaminase level: Code(s): R74.01 - Elevation of levels of liver transaminase levels Status: Acute Assessment and Plan: Likely secondary to hepatic congestion from heart failure exacerbation, monitor, improving (5) Essential hypertension: Code(s): I10 - Essential (primary) hypertension Status: Acute (6) Hyponatremia: Code(s): E87.1 - Hypo-osmolality and hyponatremia Status: Acute Assessment and Plan: Sodium improved back up to 134 today, appreciate nephrology consultation, continue fluid restriction and recheck in the a.m. Transfer Discharge Sum: Med Medications Active and Home Medications: Home Medications glucosamine sulfate 500 mg tablet (Glucosamine) 500 mg PO DAILY 05/02/20 [History Confirmed 11/15/21] multivitamin 1 tablet PO DAILY 05/02/20 [History Confirmed 11/15/21] cholecalciferol (vitamin D3) 25 mcg (1,000 unit) tablet 25 mcg PO DAILY 08/31/20 [History Confirmed 11/15/21] allopurinol 300 mg tablet 300 mg PO DAILY #90 tabs 01/30/21 [Rx Confirmed 11/15/21] aspirin 81 mg tablet,delayed release (Adult Low Dose Aspirin) 81 mg PO DAILY #90 tabs 01/30/21 [Rx Confirmed 11/15/21] diclofenac sodium 75 mg tablet,delayed release 75 mg PO BID #180 tabs 01/30/21 [Rx Confirmed 11/15/21] folic acid 0.8 mg capsule 0.8 mg PO DAILY #90 caps 01/30/21 [Rx Confirmed 11/15/21] mecobalamin (vitamin B12) 1,000 mcg chewable tablet 1,000 mcg PO DAILY #90 tabs 01/30/21 [Rx Confirmed 11/15/21] atorvastatin 80 mg tablet 80 mg PO DAILY #90 tabs 10/19/21 [Rx Confirmed 11/15/21] digoxin 125 mcg (0.125 mg) tablet 125 mcg PO DAILY #90 tabs 10/19/21 [Rx Confirmed 11/15/21] lisinopril 20 mg tablet 20 mg PO DAILY #90 tabs 10/19/21 [Rx Confirmed 11/15/21] tamsulosin 0.4 mg capsule 0.4 mg PO DAILY #90 caps 10/19/21 [Rx Confirmed 11/15/21] tiotropium bromide 18 mcg capsule with inhalation device (Spiriva with HandiHaler) See Rx Instructions .Route .COMPLEX #90 caps 10/19/21 [Rx Confirmed 11/15/21] albuterol sulfate 90 mcg/actuation aerosol inhaler 1 puff inhalation Q4H PRN SOB 11/13/21 [History Confirmed 11/15/21] potassium chloride 10 mEq capsule,extended release 10 meq PO DAILY #30 caps 11/13/21 [Rx Confirmed 11/15/21] prednisone 20 mg tablet 60 mg PO DAILY 11/13/21 [History Confirmed 11/15/21] furosemide 20 mg tablet (Lasix) 20 mg PO QAM 11/14/21 [History Confirmed 11/15/21] potassium chloride 10 mEq tablet,extended release 10 meq PO DAILY 11/14/21 [History Confirmed 11/14/21] alprazolam 0.5 mg tablet (Xanax)
== END 2021-11-17 15:50 | disposition short-term general hospital (02) | DRG 291 ==
LOC: ANHED 19:17 → ANH3MEDSUR 20:01
PROVIDERS: Internal Medicine; Internal Medicine Nephrology; Admitting Provider Family Medicine; Emergency Provider Emergency Medicine; PCP Internal Medicine; Visit Provider Student in an Organized Health Care Education/Training Program
DX: I11.0 Hypertensive heart disease with heart failure (principal); I50.31 Acute diastolic (congestive) heart failure; U07.1 COVID-19; E87.1 Hypo-osmolality and hyponatremia; R01.1 Cardiac murmur, unspecified; I34.1 Nonrheumatic mitral (valve) prolapse; J44.9 Chronic obstructive pulmonary disease, unspecified; N40.0 Benign prostatic hyperplasia without lower urinary tract symptoms; E78.2 Mixed hyperlipidemia; I35.0 Nonrheumatic aortic (valve) stenosis; I48.0 Paroxysmal atrial fibrillation; F41.9 Anxiety disorder, unspecified; Z85.820 Personal history of malignant melanoma of skin
CPT/HCPCS: 36415; 71045; 71046; 80048; 80053; 81003; 82533; 83605; 83880; 83930; 83935; 84145; 84300; 84484; 85025; 85027; 85380; 87040; 87045; 87427; 93005; 93306; 94640; 96361; 96372; 96374; 96376; 99285; A9270; C9803; G0378; J1650; J1940; J7030; U0003; U0005

== ENCOUNTER 2021-12-19 10:57 | Emergency (ER) | payer MEDICARE, SELFPAY ==
[2021-12-19] VITALS (10 sets, daily range): BP systolic 105–117; BP diastolic 68–77; PULSE 60–122; RESP 13–20; TEMP 36.7; O2SAT 97–99
--- NOTE | ~2021-12-19 | XR_ITS ---
EXAMINATION: XR chest 2V DATE: 12/19/2021 11:28 INDICATION: Bradycardia TECHNIQUE: PA and lateral views of the chest were obtained. COMPARISON: Chest radiograph dated 11/17/2021 FINDINGS: Unchanged elevation right hemidiaphragm with mild discoid atelectasis in the right lung base. Many of the lungs are clear. No pulmonary edema, pleural effusion or pneumothorax. The cardiomediastinal bibiana houette is normal. Cardiac valve repair, likely mitral. Calcified right hilar and mediastinal lymph n odes consistent with old granulomatous disease. Mild thoracic spondylosis. IMPRESSION: 1. Chronic elevation of the right hemidiaphragm with mild discoid atelectasis at the right lung base. Reviewed, dictated and finalized at location B. IMPRESSION: 1. Chronic elevation of the right hemidiaphragm with mild discoid atelectasis a t the right lung base.
--- NOTE | 2021-12-19 10:59 | ECG_ITS ---
Measurements Intervals [place] Rate: 110 P: MS: 0 QRS: -22 QRSD: 92 T: 0 QT: 325 QTc: 441 Interpretive Statements ATRIAL FIBRILLATION WITH RAPID VENTRICULAR RESPONSE LOW QRS VOLTAGE IN LIMB LEADS BORDERLINE ST-T WAVE ABNORMALITY- INF/LAT LEADS BASELINE WANDER- I, III ABNORMAL ECG Electronically Signed On 12-19-2021 11:59:51 CDT by Luis Alberto Albarran D.O.
--- NOTE | 2021-12-19 11:09 | ED.ARRPALP ---
HPI - Arrhythmia/Palpitations General Chief Complaint: Arrhythmia/Palpitations Stated Complaint: low HR Time Seen by Provider: 12/19/21 11:00 History of Present Illness HPI narrative: 71-year-old male brought in by ambulance secondary to presumed bradycardia. Patient had mitral valve surgery reports prior done on in November 2021. He has a home health nurse that comes out sees him twice a week. He is got a longstanding history of chronic intermittent atrial fibrillation. He is anticoagulated for that. He states that the home health nurse came out today and per his O2 sat probe his heart rate was in the 30s subsequently she called the patient's produce laborer and talk to the cardiology nursing: & Sent to our emergency room. Were supposed to stabilize the patient and transfer him to [facility] where his produce laborer practices. Patient does states that he checks his vital signs on a frequent basis. And that he has had some episodes where his heart rate will be high and then he is got some occasional episodes where the heart rate will be down into the 60s. However they are getting these readings off of an O2 saturation probe and I am not sure that they are actually auscultating or palpating for a pulse. Patient states that he does get dizzy when he stands up quickly from time to time but if he gets up slowly he does not have any symptoms. He is currently still working as a jensen. Denies any chest pain or shortness of breath. Has been taking all his medication as prescribed. Related Data Home Medications Medication Instructions Recorded Confirmed glucosamine sulfate 500 mg tablet 500 mg PO DAILY 05/02/20 11/15/21 (Glucosamine) multivitamin 1 tablet PO DAILY 05/02/20 11/15/21 cholecalciferol (vitamin D3) 25 25 mcg PO DAILY 08/31/20 11/15/21 mcg (1,000 unit) tablet albuterol sulfate 90 mcg/actuation 1 puff inhalation Q4H PRN SOB 11/13/21 11/15/21 aerosol inhaler apixaban 5 mg tablet 5 mg PO BID 12/19/21 garlic 400 mg tablet,delayed 1,000 mg PO DAILY 12/19/21 release metoprolol tartrate 25 mg tablet 25 mg PO BID 12/19/21 Allergies Allergy/AdvReac Type Severity Reaction Status Date / Time No Known Allergies Allergy Verified 12/19/21 11:09 Review of Systems Review of Systems: CONSTITUTIONAL: Denies fever, chills, or sweats. EYES: Denies visual changes, redness, or discharge. ENT: Denies rhinorrhea, congestion, sore throat, or otalgia. CARDIOVASCULAR: Denies chest pain, palpitations, or edema. RESPIRATORY: Denies cough or dyspnea. GASTROINTESTINAL: Denies abdominal pain, nausea, vomiting, or diarrhea. GENITOURINARY: Denies dysuria or hematuria. SKIN: Denies rash or itching. MUSCULOSKELETAL: Denies back pain, joint pain, or myalgia. NEUROLOGIC: Denies headache, numbness, or weakness. PSYCHIATRIC: Denies anxiety or depression. [facility] Past Medical History Medical History Acute diastolic CHF (congestive heart failure) Anxiety Atrial fib/flutter, transient (~2007) Benign prostatic hyperplasia COPD (chronic obstructive pulmonary disease) PFT 09/2018 demonstrating mild obstructive disease COVID-19 11/02/2021 Essential hypertension Gout History of melanoma in situ Right arm Hypoglobulinemia Hyponatremia Baseline sodium around 134 but has been as low as 125 in 2019 Insomnia Mitral valve prolapse Mixed hyperlipidemia Vitamin D deficiency Surgical History Surgical History H/O inguinal hernia repair (~1969) History of hemorrhoidectomy (~1980) Family History Family History Mother Colon cancer Liver metastases Diabetes mellitus Father Family history of premature coronary artery disease, Onset Age: 39 Sibling Hx of CABG 5 vessel bypass at age 18 with repeat bypass in his 30s with another 3 vessel procedure Family h
[2021-12-19 11:23] LABS: Basophils Percent Auto 0.2 % (0.2-1.2); Eosinophils Absolute Auto 0.3 K/mm3 (0-0.3); Eosinophils Percent Auto 3.6 % (0-4.4); Hematocrit 39.6 % (42.0-52.0); Hemoglobin 12.9 g/dL (14.0-18.0); Immature Granulocyte Absolute 0.02 K/mm3 (0.00-0.031); Immature Granulocyte Percent A 0.2 % (0-0.5); Lymphocytes Absolute Auto 1.79 K/mm3 (0.9-3.2); Lymphocytes Percent Auto 21.6 % (18.3-44.2); Mean Corpuscular HGB Conc 32.6 g/dl (32-36); Mean Corpuscular Hemoglobin 30.6 pg (26-34); Mean Corpuscular Volume 93.8 fl (80-100); Mean Platelet Volume 9.6 fl (7.4-10.4); Monocytes Percent Auto 11.9 % (2.6-8.5); Neutrophils Absolute Auto 5.2 K/mm3 (1.3-6.7); Neutrophils Percent Auto 62.5 % (45.5-73.1); Platelet Count Result 255 k/mm3 (150-375); Red Blood Count 4.22 M/mm3 (4.6-6.20); Red Cell Distribution Width 13.3 % (11.5-14.5); White Blood Count 8.3 K/mm3 (4.5-10.0)
[2021-12-19 11:29] LABS: Alanine Aminotransferase 38 U/L (6-50); Alkaline Phosphatase 99 U/L (38-126); Anion Gap 6 mmol/L (8-16); Aspartate Amino Transferase 30 U/L (17-59); Bilirubin,Total 0.4 mg/dL (0.2-1.3); Blood Urea Nitrogen 17 mg/dL (9-20); Carbon Dioxide 25 mmol/L (22-30); Chloride 100 mmol/L (98-107); Estimated CRCL calculation 49 ml/min; Estimated Glomerular Filt Rate 59; Glucose 106 mg/dL (65-110); Potassium 4.8 mmol/L (3.4-5.0); Sodium 131 mmol/L (137-145)
[2021-12-19 11:34] LABS: INR 1.2; Prothrombin Time 14.9 Seconds (11.1-14.7)
[2021-12-19 11:35] LABS: Partial Thromboplastin Time 48.7 SECONDS (22.3-36.8)
[2021-12-19 11:41] LABS: Troponin I < 0.012 ng/mL (0.000-0.034)
[2021-12-19] MEDS: METOPROLOL TARTRATE INJ 5 MG/5 ML VIAL IV PUSH (11:58)
== END 2021-12-19 13:04 | disposition home or self-care (01) ==
PROVIDERS: Emergency Provider Emergency Medicine; PCP Internal Medicine
DX: I48.91 Unspecified atrial fibrillation (principal); R00.0 Tachycardia, unspecified; I11.0 Hypertensive heart disease with heart failure; I50.9 Heart failure, unspecified; J44.9 Chronic obstructive pulmonary disease, unspecified; Z86.16 Personal history of COVID-19; E78.5 Hyperlipidemia, unspecified; F41.9 Anxiety disorder, unspecified
CPT/HCPCS: 36415; 71046; 80053; 84484; 85025; 85610; 85730; 93005; 96374; 99284

== ENCOUNTER 2022-03-08 07:15 | Outpatient (RCR) | payer MEDICARE, SELFPAY ==
[2022-01-19 11:57] VITALS: PULSE 72
== END 2022-03-08 15:43 | disposition home or self-care (01) ==
LOC: ANHCPREHAB 07:15
PROVIDERS: PCP Internal Medicine
DX: Z95.2 Presence of prosthetic heart valve (principal)
CPT/HCPCS: 93798

== ENCOUNTER 2023-04-08 11:47 | Outpatient (CLI) | payer MEDICARE, SELFPAY ==
--- NOTE | ~2023-04-08 | XR_ITS ---
XR lumbar spine 2-3V DATE: 04/08/2023 12:15 INDICATION: Low back pain for 3 weeks. No known injury. TECHNIQUE: AP, lateral, coned lateral lumbosacral views COMPARISON: None FINDINGS: There is levoscoliosis of the thoracic and lumbar spine and lower lumbar dextroscoliosis. There is diffuse osteopenia. Prominent anterior spurring in the lower thoracic spine. The included lower thoracic and lumbar pedicles are intact. No fracture or bone destruction is eviden t. There is degenerative change at the apophyseal joints in the mid and lower lumbar area with associate d minimal grade 1 anterolisthesis at L3-4 and L4-5. There is severe degenerative disc disease at L4-5 and L5-S1 including loss of interspace height, vacu um phenomenon eburnation and degenerative spurring. The sacroiliac joints are intact. IMPRESSION: Scoliosis Severe degenerative disc disease at L4-5 and L5-S1 Degenerative changes apophyseal joints with associated grade 1 anterolisthesis at L3-4 and L4-5 Reviewed, dictated and finalized at location B.
== END 2023-04-08 11:48 | disposition home or self-care (01) ==
PROVIDERS: PCP Internal Medicine; Visit Provider Internal Medicine
DX: M54.50 Low back pain, unspecified (principal)
CPT/HCPCS: 72100

== ENCOUNTER 2023-05-20 01:11 | Day surgery (SDC) | payer MEDICARE, SELFPAY ==
[2023-05-07 15:44] VITALS: BMI 28.8
--- NOTE | 2023-05-17 10:35 | SUR.PREOP ---
Patient called regarding upcoming procedure. Reviewed preop instructions, appointment times, and procedure prep.
[2023-05-20 07:29] VITALS: BP 131/85; PULSE 82; RESP 18; TEMP 35.7; O2SAT 98
[2023-05-20] MEDS: LACTATED RINGERS 1,000 ML 150 ML IV CONT (07:43)
[2023-05-20] MEDS: GENTAMICIN 80MG/SOD CHL 50 ML 80 MG/50 ML BAG 100 MG IVPB (07:45)
[2023-05-20] MEDS: AMPICILLIN 2 GM/NS 100 ML 2 GM/100 ML BAG IVPB (08:00)
--- NOTE | 2023-05-20 08:03 | WPDANESEPPF ---
Anes - Initial Pre Proc Eval Procedure: Operation Date: 05/20/23 08:30 Proposed Procedures p Colonoscopy - Homer Sheth MD Date/Time: 05/20/23 08:03 Surgeon: Homer Sheth MD Pre Op Diagnosis: FA HX malignant neoplasm of digestive organs Patient Data Age: 72 Gender: M Height: 1.75 m Weight: 86.9 kg Last Vital Signs Temp 96.2 F L 05/20/23 07:29 Pulse 82 05/20/23 07:29 Resp 18 05/20/23 07:29 BP 131/85 05/20/23 07:29 Pulse Ox 98 05/20/23 07:29 O2 Del Method Room Air 05/20/23 07:29 Allergies Allergy/AdvReac Type Severity Reaction Status Date / Time No Known Allergies Allergy Verified 05/20/23 07:26 Home Medications Medication Instructions Recorded Confirmed Type aspirin 81 mg tablet,delayed 81 mg PO DAILY #90 tabs 01/30/21 05/20/23 Rx release (Adult Low Dose Aspirin) metoprolol tartrate 50 mg tablet 50 mg PO BID 01/19/22 05/20/23 History losartan 100 mg tablet 100 mg PO DAILY 02/05/22 05/20/23 History apixaban 5 mg tablet (Eliquis) 5 mg PO BID 03/05/22 05/20/23 History hydrochlorothiazide 12.5 mg tablet See Rx Instructions .Route 12/04/22 05/20/23 Rx .COMPLEX #90 tabs allopurinol 300 mg tablet See Rx Instructions .Route 04/24/23 05/20/23 Rx .COMPLEX #90 tabs alprazolam 0.5 mg tablet (Xanax) 0.5 mg PO QHS PRN sleep/anxiety 04/24/23 05/20/23 Rx #90 tabs atorvastatin 80 mg tablet See Rx Instructions .Route 04/24/23 05/20/23 Rx .COMPLEX #90 tabs tamsulosin 0.4 mg capsule 0.4 mg PO DAILY #90 caps 04/24/23 05/20/23 Rx Patient hx anesthesia problems: none Family hx anesthesia problems: none Results Review: All pre-operative results and documents have been reviewed as part of the pre-operative evaluation. [facility] Past Medical History Medical History A-fib Abnormal PSA acceleration with normal PSA Acute diastolic CHF (congestive heart failure) Anxiety ASHD (arteriosclerotic heart disease) Atrial fib/flutter, transient (~2007) Benign prostatic hyperplasia BMI 28.0-28.9,adult BMI 29.0-29.9,adult CKD (chronic kidney disease) COPD (chronic obstructive pulmonary disease) PFT 09/2018 demonstrating mild obstructive disease COVID-19 11/02/2021 Degenerative disc disease at L5-S1 level Encounter for routine adult health examination with abnormal findings Essential hypertension Gout High prostate specific antigen (PSA) History of melanoma in situ Right arm Hypoglobulinemia Hyponatremia Baseline sodium around 134 but has been as low as 125 in 2019 Insomnia Mitral valve prolapse Mixed hyperlipidemia Vitamin D deficiency Surgical History Surgical History H/O inguinal hernia repair (~1969) History of hemorrhoidectomy (~1980) S/P AVR Family History Family History Mother Colon cancer Diabetes mellitus Liver metastases Father Family history of premature coronary artery disease, Onset Age: 39 Sibling Family history of premature coronary artery disease, Onset Age: 18 Hx of CABG 5 vessel bypass at age 16 with repeat bypass in his 30s with another 3 vessel procedure Hypercholesteremia Hypertension Social History Social History Social History: The patient lives with his of 49 years. They raised 2 sons. 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 However his part-time job involved 68 hours last week. Code status: Full code Surrogate decision maker: Smoking status: Never smoker Second hand tobacco smoke exposure: No Alcohol intake: current Drinks per week: 1 Alcohol use details: He drinks 1 alcoholic beverage every couple of weeks. Substance use: never Substanc
--- NOTE | 2023-05-20 08:23 | PM.HPGS ---
History of Present Illness History of Present Illness Consent: Risks, benefits, and alternatives have been discussed and questions answered. Patient agrees to proceed with procedure. Chief complaint: FA HX malignant neoplasm of digestive organs Narrative: Ermias Lindsay is a 72 year old male with last colonoscopy 2017, mother had colon cancer Review of Systems Constitutional: Constitutional: Denies headache(s) and Denies weakness Eyes: Eyes: Denies blurry vision ENT: Reports Normal hearing present, Denies headache(s) and Denies neck pain Cardiovascular: Cardiovascular: Denies chest pain and Denies dyspnea Respiratory: Respiratory: Denies dyspnea Gastrointestinal: Gastrointestinal: Reports no additional gastrointestinal complaints Genitourinary: Genitourinary: Denies dysuria Musculoskeletal: Musculoskeletal: Denies neck pain Integumentary/Breasts: Skin/Breast: Denies dry skin Neurologic: Reports Normal hearing present, Denies headache(s) and Denies weakness Psychiatric: Psychiatric: Denies anxiety Endocrine: Endocrine: Denies change in body appearance Hematologic/Lymphatic: Hematologic/Lymphatic: Denies easy bleeding Allergic/Immunologic: Allergic/Immunologic: Denies urticaria PMFSH Past Medical History Medical History A-fib Abnormal PSA acceleration with normal PSA Acute diastolic CHF (congestive heart failure) Anxiety ASHD (arteriosclerotic heart disease) Atrial fib/flutter, transient (~2007) Benign prostatic hyperplasia BMI 28.0-28.9,adult BMI 29.0-29.9,adult CKD (chronic kidney disease) COPD (chronic obstructive pulmonary disease) PFT 09/2018 demonstrating mild obstructive disease COVID-19 11/02/2021 Degenerative disc disease at L5-S1 level Encounter for routine adult health examination with abnormal findings Essential hypertension Gout High prostate specific antigen (PSA) History of melanoma in situ Right arm Hypoglobulinemia Hyponatremia Baseline sodium around 134 but has been as low as 125 in 2019 Insomnia Mitral valve prolapse Mixed hyperlipidemia Vitamin D deficiency Surgical History Surgical History H/O inguinal hernia repair (~1969) History of hemorrhoidectomy (~1980) S/P AVR Family History Family History Mother Colon cancer Diabetes mellitus Liver metastases Father Family history of premature coronary artery disease, Onset Age: 39 Sibling Family history of premature coronary artery disease, Onset Age: 18 Hx of CABG 5 vessel bypass at age 18 with repeat bypass in his 30s with another 3 vessel procedure Hypercholesteremia Hypertension Social History Social History Social History: The patient lives with his of 49 years. They raised 2 sons. 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 However his part-time job involved 68 hours last week. Code status: Full code Surrogate decision maker: Smoking status: Never smoker Second hand tobacco smoke exposure: No Alcohol intake: current Drinks per week: 1 Alcohol use details: He drinks 1 alcoholic beverage every couple of weeks. Substance use: never Substance use type: does not use Lack of Transportation: No Lack of Food: Never True Current Housing: I Have Housing Concerned About Future Housing: No Difficulty Paying Gas/Electric Bills: No Difficulty Paying for Meds: No Currently Unemployed: No Education: High School Diploma/GED Difficulty w/ Childcare or Family Care: No Living arrangements: with family Occupation/Education: retired Gender identity (if verbalized by the patient): Male Sexual Orientation (if Verbalized by the Patie
[2023-05-20 08:52] VITALS: BP 102/57; PULSE 74; RESP 18; O2SAT 98
[2023-05-20 09:02] VITALS: BP 109/70; PULSE 74; RESP 20; O2SAT 98
[2023-05-20 09:12] VITALS: BP 130/80; PULSE 77; RESP 17; O2SAT 98
== END 2023-05-20 09:12 | disposition home or self-care (01) ==
PROVIDERS: PCP Internal Medicine; Visit Provider Internal Medicine Gastroenterology
PROC: 0DJD8ZZ Inspection of Lower Intestinal Tract, Via Natural or Artificial Opening Endoscopic (ICD-10-PCS; CPT 45378; principal; 2023-05-20 08:30)
DX: Z12.11 Encounter for screening for malignant neoplasm of colon (principal); D12.2 Benign neoplasm of ascending colon; K57.30 Diverticulosis of large intestine without perforation or abscess without bleeding; K64.8 Other hemorrhoids; K64.4 Residual hemorrhoidal skin tags; K62.89 Other specified diseases of anus and rectum; E78.2 Mixed hyperlipidemia; E55.9 Vitamin D deficiency, unspecified; F41.9 Anxiety disorder, unspecified; I12.9 Hypertensive chronic kidney disease with stage 1 through stage 4 chronic kidney disease, or unspecified chronic kidney disease; N18.9 Chronic kidney disease, unspecified; N40.0 Benign prostatic hyperplasia without lower urinary tract symptoms; J44.9 Chronic obstructive pulmonary disease, unspecified; E87.1 Hypo-osmolality and hyponatremia; G47.00 Insomnia, unspecified; E66.9 Obesity, unspecified; Z68.28 Body mass index [BMI] 28.0-28.9, adult; Z79.82 Long term (current) use of aspirin; Z79.01 Long term (current) use of anticoagulants; Z86.79 Personal history of other diseases of the circulatory system; Z86.006 Personal history of melanoma in-situ; Z80.0 Family history of malignant neoplasm of digestive organs; Z82.49 Family history of ischemic heart disease and other diseases of the circulatory system
CPT/HCPCS: 45380; 88305; J0290; J1580; J2704; J7120

== ENCOUNTER 2023-05-28 14:25 | Outpatient (CLI) | payer MEDICARE, SELFPAY ==
--- NOTE | ~2023-05-28 | XR_ITS ---
EXAMINATION: XR chest 2V DATE: 05/28/2023 14:44 INDICATION: Cough. TECHNIQUE: Frontal and lateral views of the chest were obtained. COMPARISON: Chest 2 views 12/19/2021 FINDINGS: There is marked in elevation of right hemidiaphragm. There is mild atelectasis at right krystle g base. No pleural effusion or pneumothorax. The heart size is normal. There are changes of mitral va lve replacement. IMPRESSION: 1. Chronic marked elevation of right hemidiaphragm with mild atelectasis at right lung base. Reviewed, dictated and finalized at location E. HING MACHINE OPERATOR IMPRESSION: 1. Chronic marked elevation of right hemidiaphragm with mild atelectasis at rig ht lung base.
== END 2023-05-28 14:26 | disposition home or self-care (01) ==
PROVIDERS: PCP Internal Medicine; Visit Provider Internal Medicine
DX: R05.9 Cough, unspecified (principal); J98.11 Atelectasis; R91.8 Other nonspecific abnormal finding of lung field
CPT/HCPCS: 71046

== ENCOUNTER → 2023-07-13 07:25 | Outpatient (CLI) | payer MEDICARE, SELFPAY ==
--- NOTE | ~2023-07-13 | MR_ITS ---
EXAMINATION: MR lumbar spine wo con DATE: 07/13/2023 08:12 INDICATION: Lumbar radiculopathy. Low back pain. TECHNIQUE: Magnetic resonance imaging (MRI) of the lumbar spine was performed without intravenous con trast. Sequences included sagittal T2-weighted FSE, sagittal T2-weighted FS FSE, sagittal T1-weighted FSE, and axial T2-weighted FSE. COMPARISON: Lumbar spine radiographs 04/08/2023 FINDINGS: There is 11 degrees levoscoliosis of lumbar spine. There is 3 mm anterolisthesis of L4 on L 5 and 3 mm retrolisthesis of L5 on S1. Vertebral body heights are normal. There is severely decreased disc height at L1-L2, mildly decreased disc height at L2-L3, and severely decreased disc height at L 4-L5 and L5-S1. The distal spinal cord signal intensity is normal. The conus medullaris is at T12-L1. The following disc levels are specifically discussed: L1-L2: The disc is bulging and has an annular fissure. There is severe bilateral facet joint osteoart hritis. There is moderate right and mild left neural foraminal stenosis. There is mild central canal stenosis. L2-L3: The disc is bulging and has an annular fissure. There is severe bilateral facet joint osteoart hritis. There is mild bilateral neural foraminal stenosis. There is mild central canal stenosis. L3-L4: The disc is bulging. There is severe bilateral facet joint osteoarthritis. There is mild bilat eral neural foraminal stenosis. There is mild central canal stenosis. L4-L5: The disc is bulging and has an annular fissure. There is severe bilateral facet joint osteoart hritis. There is mild right and moderate left neural foraminal stenosis. There is mild central canal stenosis. There is moderate stenosis of the lateral recesses. L5-S1: The disc is bulging and has an annular fissure. There is severe bilateral facet joint osteoart hritis. There is moderate right and mild left neural foraminal stenosis. There is mild central canal stenosis. IMPRESSION: 1. Severe lumbar spondylosis. 2. Lumbar levoscoliosis. Reviewed, dictated and finalized at location E. POINT PUMPING SUPERVISOR
== END ==
PROVIDERS: PCP Nurse Practitioner Family; Visit Provider Nurse Practitioner Family
DX: M43.06 Spondylolysis, lumbar region (principal); M41.86 Other forms of scoliosis, lumbar region; Z85.46 Personal history of malignant neoplasm of prostate
CPT/HCPCS: 72148

== ENCOUNTER 2023-12-17 08:01 | Outpatient (CLI) | payer MEDICARE, SELFPAY ==
--- NOTE | ~2023-12-17 | XR_ITS ---
XR abdomen/kub 1V Ordering provider: Rommel Henley MD History: . R31.9 - Hematuria, unspecified, BLOOD IN URINE . Comparison: None. FINDINGS: BOWEL: Nonobstructive bowel gas pattern. ORGANOMEGALY: None. SIGNIFICANT PATHOLOGIC CALCIFICATIONS: The calcific area seen at the level of S1 is most likely from the vertebra. OTHER: No free air is seen under the diaphragm. Degenerative changes of the spine. Bilateral hip osteoarthritic changes. IMPRESSION: NO ACUTE ABDOMINAL FINDINGS. Reviewed, dictated and finalized at location A.
[2023-12-17 08:41] LABS: Basophils Percent Auto 0.2 % (0.2-1.2); Eosinophils Absolute Auto 0.1 K/mm3 (0-0.3); Eosinophils Percent Auto 0.7 % (0-4.4); Hematocrit 41.6 % (42.0-52.0); Hemoglobin 13.8 g/dL (14.0-18.0); Immature Granulocyte Absolute 0.09 K/mm3 (0.00-0.031); Immature Granulocyte Percent A 0.5 % (0-0.5); Lymphocytes Absolute Auto 0.71 K/mm3 (0.9-3.2); Lymphocytes Percent Auto 3.7 % (18.3-44.2); Mean Corpuscular HGB Conc 33.2 g/dl (32-36); Mean Corpuscular Hemoglobin 31.4 pg (26-34); Mean Corpuscular Volume 94.8 fl (80-100); Monocytes Absolute Auto 1.1 K/mm3 (0.1-0.6); Monocytes Percent Auto 5.6 % (2.6-8.5); Neutrophils Absolute Auto 17.1 K/mm3 (1.3-6.7); Neutrophils Percent Auto 89.3 % (45.5-73.1); Platelet Count Result 196 k/mm3 (150-375); Red Blood Count 4.39 M/mm3 (4.6-6.20); Red Cell Distribution Width 13.2 % (11.5-14.5); White Blood Count 19.1 K/mm3 (4.5-10.0)
[2023-12-17 09:02] LABS: Bacteria Urine 1+ /hpf; Need Manual Microscopic Reviewed; Non Pathogenic Casts 0-2; Squamous Epithelial Cell Urine None Seen /hpf (Few)
[2023-12-17 09:06] LABS: Appearance Urine Turbid (Clear); Blood Urine 2+ (Negative); Color Urine Red (Yellow); Glucose Urine UA Negative (Negative); Ketones Urine Negative (Negative); Leukocyte Esterase Ur 3+ LEU/UL (Negative); Nitrate Urine Positive (Negative); Protein Urine 2+ mg/dL (Negative); Specific Grav Ur 1.018 (1.001-1.035); Urobilinogen Urine 0.2 mg/dL (<2.0)
[2023-12-17 09:07] LABS: RBC Urine >100 /hpf (0-2)
[2023-12-17 09:08] LABS: WBC Urine Unable to determine /hpf (0-3)
[2023-12-17 09:09] LABS: Add Urine Microscopic? YES
== END 2023-12-17 08:02 | disposition home or self-care (01) ==
LOC: ANHIMG 08:05
PROVIDERS: PCP Internal Medicine; Visit Provider Internal Medicine
DX: R31.9 Hematuria, unspecified (principal); R30.0 Dysuria
CPT/HCPCS: 36415; 74018; 81001; 85025

== ENCOUNTER 2023-12-17 11:09 | Emergency (ER) | payer MEDICARE, SELFPAY ==
--- NOTE | ~2023-12-17 | CT_ITS ---
CT abdomen pelvis wo con Ordering provider: Gisele De Oliveira MD History: 73 years Male with . painless hematuria, hx of prostate CA . Comparison: None. Technique: CT abdomen and pelvis without IV and without oral contrast. Automated exposure control and iterative reconstruction technique were employed. The dose-length product was 750.61 mGy-cm. Findings: VISUALIZED LOWER CHEST: 2 mm nodule seen in the right middle lobe. Subcarinal lymph node calcificatio n. UPPER ABDOMINAL ORGANS: Liver: Normal. Gallbladder: Cholelithiasis. Spleen: Normal. Stomach/duodenum: Normal. Pancreas: Normal. Adrenals: Normal. Kidneys: Minimal fullness of the right renal pelvis. Possibility of a tiny stone in the distal end of the right ureter is not excluded measuring 2 mm. PELVIC ORGANS: The wall of the urinary bladder is slightly thickened which is suggestive of cystitis. Follow-up and further evaluation advised. Slightly enlarged prostate. BOWEL AND MESENTERY: Colon: No evidence of diverticulitis. No evidence of appendicitis. Small Bowel: Normal. No obstruction. Peritoneum/mesentery: No free air or free fluid. No mesenteric lymphadenopathy. RETROPERITONEUM: Mild atheromatous disease of the abdominal aorta. No retroperitoneal lymphadenopat hy. MUSCULOSKELETAL: Superficial soft tissues: The superficial soft tissues are normal. Bones: Age appropriate degenerative changes of the spine. IMPRESSION: 1. Possible very tiny stone in the right lower ureter less than 2 mm with mild dilatation of the rig ht renal pelvis. 2. No evidence of appendicitis, diverticulitis or intestinal obstruction. 3. Thickened wall of the urinary bladder suggestive of cystitis. Further evaluation advised to exclu de infiltrative process. 4. Cholelithiasis. Reviewed, dictated and finalized at location A. IMPRESSION: 1. Possible very tiny stone in the right lower ureter less than 2 mm with mild dilatation of the right renal pelvis. 2. No evidence of appendicitis, diverticulitis or intestinal obstruction. 3. Thickened wall of the urinary bladder suggestive of cystitis. Further evalu ation advised to exclude infiltrative process. 4. Cholelithiasis.
[2023-12-17 11:15] VITALS: BP 144/74; PULSE 69; RESP 20; TEMP 36.3; O2SAT 98
--- NOTE | 2023-12-17 12:34 | ED.MALEGU ---
HPI - Male Genitourinary General Chief complaint: Urogenital-Male Stated complaint: hematuria Time Seen by Provider: 12/17/23 12:05 History of Present Illness HPI Narrative: 73-year-old male with history of AFib on Eliquis presenting with hematuria. Patient states that when he woke this morning he noticed his urine was dark red. He called his PCP who ordered some outpatient labs which showed elevated white blood cell count so he was advised to come to the ER for evaluation. Patient reports some possible chills but no fevers, abdominal pain, flank pain, nausea vomiting, diarrhea. States that he has a history of prostate cancer, follows with urology. No further complaints. Related Data Home Medications Medication Instructions Recorded Confirmed metoprolol tartrate 50 mg tablet 50 mg PO BID 01/19/22 09/04/23 losartan 100 mg tablet 100 mg PO DAILY 02/05/22 09/04/23 apixaban 5 mg tablet (Eliquis) 5 mg PO BID 03/05/22 09/04/23 Allergies Allergy/AdvReac Type Severity Reaction Status Date / Time No Known Allergies Allergy Verified 12/17/23 11:09 Review of Systems Review of Systems: All systems reviewed & are unremarkable except as noted in HPI and below PMFSH Past Medical History Medical History A-fib Abnormal PSA acceleration with normal PSA Acute diastolic CHF (congestive heart failure) Anxiety ASHD (arteriosclerotic heart disease) Atrial fib/flutter, transient (~2007) Benign prostatic hyperplasia BMI 28.0-28.9,adult BMI 29.0-29.9,adult CKD (chronic kidney disease) COPD (chronic obstructive pulmonary disease) PFT 09/2018 demonstrating mild obstructive disease COVID-19 11/02/2021 Degenerative disc disease at L5-S1 level Encounter for routine adult health examination with abnormal findings Essential hypertension Gout High prostate specific antigen (PSA) History of melanoma in situ Right arm Hypoglobulinemia Hyponatremia Baseline sodium around 134 but has been as low as 125 in 2019 Insomnia Mitral valve prolapse Mixed hyperlipidemia Vitamin D deficiency Surgical History Surgical History H/O inguinal hernia repair (~1969) History of hemorrhoidectomy (~1980) S/P AVR Family History Family History Mother Colon cancer Diabetes mellitus Liver metastases Father Family history of premature coronary artery disease, Onset Age: 39 Sibling Family history of premature coronary artery disease, Onset Age: 18 Hx of CABG 5 vessel bypass at age 16 with repeat bypass in his 30s with another 3 vessel procedure Hypercholesteremia Hypertension Social History Social History Social History: The patient lives with his of 49 years. They raised 2 sons. 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 However his part-time job involved 68 hours last week. Code status: Full code Surrogate decision maker: Smoking status: Never smoker Second hand tobacco smoke exposure: No Alcohol intake: current Drinks per week: 1 Alcohol use details: He drinks 1 alcoholic beverage every couple of weeks. Substance use: never Substance use type: does not use Lack of Transportation: No Lack of Food: Never True Current Housing: I Have Housing Concerned About Future Housing: No Difficulty Paying Gas/Electric Bills: No Difficulty Paying for Meds: No Currently Unemployed: No Education: High School Diploma/GED Difficulty w/ Childcare or Family Care: No Living arrangements: with family Occupation/Education: retired Gender identity (if verbalized by the patient): Male Sexual Orientation (if Verbalized by the Patient): Straight or Heterosexua
[2023-12-17] MEDS: SODIUM CHLORIDE 0.9% IV 1,000 ML 999 ML IV CONT (13:00)
[2023-12-17 13:25] LABS: Lactic Acid Reflex 1.3 mmol/L (0.7-2.0)
[2023-12-17 13:27] LABS: Alanine Aminotransferase 44 U/L (6-50); Albumin Level 4.4 g/dL (3.5-5.1); Alkaline Phosphatase 75 U/L (38-126); Anion Gap 11 mmol/L (4-12); Aspartate Amino Transferase 43 U/L (17-59); Bilirubin,Total 1.3 mg/dL (0.2-1.3); Blood Urea Nitrogen 12 mg/dL (9-20); Calcium 9.2 mg/dL (8.4-10.2); Carbon Dioxide 26 mmol/L (22-30); Chloride 94 mmol/L (98-107); Estimated CRCL calculation 62 ml/min; Estimated Glomerular Filt Rate > 60; Glucose 101 mg/dL (65-110); Potassium 4.3 mmol/L (3.4-5.0); Sodium 131 mmol/L (137-145)
[2023-12-17 13:41] LABS: INR 1.1; Prothrombin Time 14.3 Seconds (11.1-14.7)
[2023-12-17 13:42] LABS: Partial Thromboplastin Time 39.1 Seconds (22.3-36.8)
[2023-12-17] MEDS: cefTRIAXone 2 GM/NS 100 ML 2 GM/100 ML BAG IVPB (14:00)
[2023-12-17 15:13] VITALS: BP 134/76; PULSE 80; RESP 14; O2SAT 98
== END 2023-12-17 15:14 | disposition home or self-care (01) ==
PROVIDERS: Emergency Provider Emergency Medicine; PCP Internal Medicine
DX: I48.91 Unspecified atrial fibrillation (principal); I13.0 Hypertensive heart and chronic kidney disease with heart failure and stage 1 through stage 4 chronic kidney disease, or unspecified chronic kidney disease; N18.9 Chronic kidney disease, unspecified; I50.31 Acute diastolic (congestive) heart failure; I34.1 Nonrheumatic mitral (valve) prolapse; J44.9 Chronic obstructive pulmonary disease, unspecified; E78.2 Mixed hyperlipidemia; E55.9 Vitamin D deficiency, unspecified; Z85.820 Personal history of malignant melanoma of skin; Z86.16 Personal history of COVID-19; Z79.01 Long term (current) use of anticoagulants; Z79.82 Long term (current) use of aspirin; Z79.899 Other long term (current) drug therapy; K80.20 Calculus of gallbladder without cholecystitis without obstruction; R93.41 Abnormal radiologic findings on diagnostic imaging of renal pelvis, ureter, or bladder
CPT/HCPCS: 36415; 74018; 74176; 80053; 81001; 83605; 85025; 85610; 85730; 96361; 96365; 99284; J0696; J7030

== ENCOUNTER 2024-03-03 10:04 | Outpatient (CLI) | payer MEDICARE, SELFPAY ==
--- NOTE | ~2024-03-03 | XR_ITS ---
XR chest 2V Ordering provider: Rommel Henley MD History: 73 years Male with . COUGH X 2-3 WEEKS,HX EMPHYSEMA,HX VALVE REPLACEMENT X2 YEAR . Comparison: May 28, 2023 FINDINGS: MEDIASTINUM: The cardiac silhouette is not enlarged. Postoperative changes in the heart. LUNGS: No infiltrates, effusions or pneumothorax. Elevation of the right hemidiaphragm is noted. OTHER: No free air under the diaphragm. IMPRESSION: No acute cardiopulmonary pathology. Reviewed, dictated and finalized at location A.
== END 2024-03-03 10:05 | disposition home or self-care (01) ==
LOC: ANHIMG 10:05
PROVIDERS: PCP Internal Medicine; Visit Provider Internal Medicine
DX: R05.9 Cough, unspecified (principal)
CPT/HCPCS: 71046

== ENCOUNTER 2024-04-01 07:38 | Outpatient (CLI) | payer MEDICARE, SELFPAY ==
--- NOTE | 2024-04-01 07:52 | ECG_ITS ---
Test Date: 2024-04-01 08:05:27 Measurements Intervals [place] Rate: 62 P: 58 [place]: 194 QRS: -11 QRSD: 98 T: 36 QT: 413 QTc: 420 Interpretive Statements SINUS RHYTHM NORMAL ECG WARNING: DATA QUALITY MAY AFFECT INTERPRETATION No previous ECG available for comparison Electronically Signed On 04-01-2024 10:23:48 CDT by Alejandro Kern M.D.
[2024-04-01 08:27] LABS: Anion Gap 8 mmol/L (4-12); Blood Urea Nitrogen 14 mg/dL (9-20); Calcium 9.2 mg/dL (8.4-10.2); Carbon Dioxide 29 mmol/L (22-30); Chloride 95 mmol/L (98-107); Estimated Glomerular Filt Rate > 60; Glucose 137 mg/dL (65-110); Potassium 4.2 mmol/L (3.4-5.0); Sodium 132 mmol/L (137-145)
[2024-04-01 08:30] LABS: INR 1.1; Prothrombin Time 15.1 Seconds (11.1-14.7)
[2024-04-01 08:32] LABS: Partial Thromboplastin Time 45.2 Seconds (22.3-36.8)
== END 2024-04-01 07:39 | disposition home or self-care (01) ==
PROVIDERS: Anesthesiology; PCP Internal Medicine; Visit Provider Urology
DX: Z01.818 Encounter for other preprocedural examination (principal); R31.9 Hematuria, unspecified; N18.9 Chronic kidney disease, unspecified; I48.91 Unspecified atrial fibrillation; I34.1 Nonrheumatic mitral (valve) prolapse; I25.10 Atherosclerotic heart disease of native coronary artery without angina pectoris
CPT/HCPCS: 36415; 80048; 85610; 85730; 87086; 93005

== ENCOUNTER 2024-04-07 01:41 | Day surgery (SDC) | payer MEDICARE, SELFPAY ==
--- NOTE | 2024-03-31 12:46 | PC.NURSE ---
Report to the Outpatient Waiting Room, entrance under the green pavilion located off [facility], at time __0630am_ on date _ 04/07/24 . Planned Procedure Time: ___0830am .? Time changes happen often and if your time is changed the preop area will call you the afternoon before. - You and your visitor will be asked to self-screen and do not enter if you have any COVID symptoms. Please call surgeon if you need to reschedule. - A mask is optional within the hospital at this time. Patients may have clear liquids (water, carbonated beverages, clear teas, apple juice) until 3 hours prior to surgery with a maximum of 20 ounces. - No food from midnight until time of surgery and no smoking (05:30am) Take only the following medications with a SIP of water on the morning of surgery: ___Metoprolol _ DO NOT STOP ANY OF YOUR OTHER PRESCRIPTION MEDICATIONS PRIOR TO SURGERY EXCEPT THE FOLLOWING Medications to discontinue per physician ___Hold Eliquis 72 hrs before surgery per - Date to take last dose is 04/03/24 Also HOLD aspirin for 7 days prior to surgery per Dr. Villalobos. Date to take last dose___03/30/24. Hold all vitamins and supplements for 3 days prior to surgery per Anesthesia. Date to take last dose is 04/03/24. Please no make-up, nail cook islander, hairspray, perfume, deodorant, or body powder the day of surgery.? No jewelry (including any body piercings) or valuables the day of surgery, leave them at home.? Please take a shower or bath the night before, or the morning of, surgery with an antibacterial soap.?Prep per Surgeon protocol. Wear comfortable, loose fitting clothing.? - Jewelry must be removed prior to entering the operating room.? Rings and piercings that are not removed may be cut off. - The hospital will not accept responsibility for valuables.? - Please leave all valuables, including medications, at home the day of surgery. If you are going home after surgery, a licensed miniature train driver must drive you home.? - NO public transportation without another adult if you receive anesthesia. - We recommend that an adult stay with you for 24 hours following discharge. - We also recommend that you do not drive, make important decision, drink alcoholic beverages, or take any drugs that were not prescribed by your health care provider for at least 24 hours after your discharge time. Follow any additional instructions given to you from your surgeon. Telephone instructions given to __patient and asked if any additional questions and then verbalized understanding. Patient advised to call surgeon office or pre surgery nurse liaison [phone] if any additional questions.
[2024-03-31 13:06] VITALS: BMI 27.0
[2024-04-07] VITALS (8 sets, daily range): BP systolic 116–180; BP diastolic 69–97; PULSE 53–68; RESP 14–22; TEMP 36.1–36.6; O2SAT 97–100
[2024-04-07] MEDS: LACTATED RINGERS 1,000 ML 30 ML IV CONT (08:00)
[2024-04-07 08:39] LABS: INR 1.1
[2024-04-07 08:41] LABS: Partial Thromboplastin Time 46.7 Seconds (22.3-36.8)
--- NOTE | 2024-04-07 10:30 | WPDANESEPPF ---
Anes - Initial Pre Proc Eval Procedure: Operation Date: 04/07/24 09:30 Proposed Procedures p Cystoscopy, Bladder Biopsy with Fulguration - Parvez Villalobos MD Date/Time: 04/07/24 10:30 Surgeon: Parvez Villalobos MD Pre Op Diagnosis: gross hematuria, prostate cancer Patient Data Age: 73 Gender: M Height: 1.8 m Weight: 87.1 kg Last Vital Signs Temp 36.1 C L 04/07/24 08:00 Pulse 62 04/07/24 08:00 Resp 14 04/07/24 08:00 BP 135/77 04/07/24 08:00 Pulse Ox 97 04/07/24 08:00 O2 Del Method Room Air 04/07/24 08:00 Allergies Allergy/AdvReac Type Severity Reaction Status Date / Time No Known Allergies Allergy Verified 04/07/24 09:14 Home Medications Medication Instructions Recorded Confirmed Type aspirin 81 mg tablet,delayed 81 mg PO DAILY #90 tabs 01/30/21 04/07/24 Rx release (Adult Low Dose Aspirin) metoprolol tartrate 50 mg tablet 50 mg PO BID 01/19/22 03/31/24 History losartan 100 mg tablet 100 mg PO DAILY 02/05/22 03/31/24 History apixaban 5 mg tablet (Eliquis) 5 mg PO BID 03/05/22 04/07/24 History tamsulosin 0.4 mg capsule 0.4 mg PO DAILY #90 caps 04/24/23 03/31/24 Rx ezetimibe 10 mg tablet (Zetia) See Rx Instructions .Route 08/05/23 03/31/24 Rx .COMPLEX #90 tabs allopurinol 300 mg tablet See Rx Instructions .Route 10/25/23 03/31/24 Rx .COMPLEX #90 tabs alprazolam 0.5 mg tablet (Xanax) 0.5 mg PO QHS PRN sleep/anxiety 02/07/24 03/31/24 Rx #90 tabs tiotropium bromide 18 mcg capsule 1 cap inhalation DAILY #90 03/02/24 03/31/24 Rx with inhalation device (Spiriva inhalations with HandiHaler) atorvastatin 80 mg tablet See Rx Instructions .Route 03/30/24 03/31/24 Rx .COMPLEX #90 tabs Laboratory Tests 04/07/24 08:21 PT 14.0 Seconds (11.1-14.7) INR 1.1 APTT 46.7 H Seconds (22.3-36.8) Patient hx anesthesia problems: post op nausea/vomiting Family hx anesthesia problems: none Results Review: All pre-operative results and documents have been reviewed as part of the pre-operative evaluation. PENDING SALE TO [facility] Past Medical History Medical History A-fib Abnormal PSA acceleration with normal PSA Acute diastolic CHF (congestive heart failure) Anxiety ASHD (arteriosclerotic heart disease) Atrial fib/flutter, transient (~2007) Benign prostatic hyperplasia BMI 28.0-28.9,adult BMI 29.0-29.9,adult CKD (chronic kidney disease) COPD (chronic obstructive pulmonary disease) PFT 09/2018 demonstrating mild obstructive disease COVID-19 11/02/2021 Degenerative disc disease at L5-S1 level Encounter for routine adult health examination with abnormal findings Essential hypertension Gout High prostate specific antigen (PSA) History of melanoma in situ Right arm Hypoglobulinemia Hyponatremia Baseline sodium around 134 but has been as low as 125 in 2019 Insomnia Mitral valve prolapse Mixed hyperlipidemia Vitamin D deficiency Surgical History Surgical History H/O inguinal hernia repair (~1969) History of hemorrhoidectomy (~1980) S/P AVR Family History Family History Mother Colon cancer Diabetes mellitus Liver metastases Father Family history of premature coronary artery disease, Onset Age: 39 Sibling Family history of premature coronary artery disease, Onset Age: 18 Hx of CABG 5 vessel bypass at age 16 with repeat bypass in his 30s with another 3 vessel procedure Hypercholesteremia Hypertension Social History Social History Social History: The patient lives with his of 49 years. They raised 2 sons. 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 However his part-time job involved 68 hours last week. Code status: Full code Surrogate decision maker: Smoking status: Never smoker Second hand tobacco smoke exposure: No Alcohol intake: current Drinks per week: 1 Alcohol use details: He drinks 1 alcoholic beverage every couple of weeks. Substance use: never Substance use type: does not use Lack of Transportation: No Lack of Food: Never True Current Housing: I Have Housing Concerned About Future Housing: No Difficulty Paying Gas/Electric Bills: No Difficulty Paying for Meds: No Currently Unemployed: No Education: High School Diploma/GED Difficulty w/ Childcare or Family Care: No Living arrangements: with family Additional living arrangements comments: [place] Occupation/Education: retired Gender identity (if verbalized by the patient): Male Sexual Orientation (if Verbalized by the Patient): Straight or Heterosexual Spiritual care concerns: No Agree to blood products: Yes Anes - Eval Final PreProcedure Day of Procedure 04/07/24 10:30 Patient weight: normal Heart: regular rate and rhythm Lungs: clear to auscultation and normal air movement Airway: Mallampati scale class II Neurological: alert and oriented Last oral intake: >/= 8 hours ASA classification: III Emergent: no Anesthetic plan: proceed Anesthesia type and monitoring: general LMA and standard monitoring Results Review: All pre-operative results and documents have been reviewed as part of the pre-operative evaluation. Informed Consent: The patient's anesthetic plan and its attendant risks and benefits were discussed with the patient/family/POA. Questions were solicited and answers provided to the satisfaction of the patient/family/POA.
--- NOTE | 2024-04-07 10:35 | WPDHPUPDATE1 ---
History and Physical Update Update Date/Time: 04/07/24 10:35 History and Physical has been reviewed, including an updated exam of the patient. There are NO changes in the patient's condition. Risks, benefits, and alternatives have been discussed and questions answered. Patient agrees to proceed with procedure. Proceed with cysto, bladder biopsy and fulguration
[2024-04-07] MEDS: ceFAZolin 2 GM/D5W 50 ML 2 GM/50 ML BAG IVPB (10:41)
--- NOTE | 2024-04-07 11:01 | P.OP_ITS ---
Procedure Note - Detailed Date of Procedure 04/07/24 Pre-op Diagnosis gross hematuria, prostate cancer bladder lesion Post-op Diagnosis Same Procedure Performed Cystoscopy with bladder biopsy and fulguration Surgeon Parvez Villalobos MD Anesthesia General Description of Procedure Patient was taken to the operative suite correctly identified. Once anesthesia was obtained was placed in dorsal lithotomy position and prepped and draped usual sterile fashion. Twenty-two Kyrgyz scope was inserted the bladder. There are no urethral strictures. Bladder itself is no discrete papillary tumors. There was erythema just proximal to the trigone. Using a cold cup biopsy we biopsied 2 areas. I fulgurated these areas. There was good hemostasis. 2% viscous lidocaine was inserted into the urethra patient is taken recovery stable condition. He will call for path results in 1 week. This completes dictation. Please send a copy of op note to my office Estimated Blood Loss 0 Drains No Packing No Pathology Yes Complications No immediate complications Condition Stable Disposition PACU
[2024-04-07] MEDS: LIDOCAINE HCL 2% GEL UROJET 10 ML PKG MUCOUS MEM (11:03)
== END 2024-04-07 12:52 | disposition home or self-care (01) ==
PROVIDERS: PCP Internal Medicine; Visit Provider Urology
PROC: 0TBB8ZX Excision of Bladder, Via Natural or Artificial Opening Endoscopic, Diagnostic (ICD-10-PCS; CPT 52204; principal; 2024-04-07 09:30)
DX: N32.89 Other specified disorders of bladder (principal); C61 Malignant neoplasm of prostate; I48.91 Unspecified atrial fibrillation; I13.0 Hypertensive heart and chronic kidney disease with heart failure and stage 1 through stage 4 chronic kidney disease, or unspecified chronic kidney disease; I50.30 Unspecified diastolic (congestive) heart failure; N18.9 Chronic kidney disease, unspecified; I25.10 Atherosclerotic heart disease of native coronary artery without angina pectoris; J44.9 Chronic obstructive pulmonary disease, unspecified; E78.2 Mixed hyperlipidemia; M10.9 Gout, unspecified; E55.9 Vitamin D deficiency, unspecified; I34.1 Nonrheumatic mitral (valve) prolapse; F41.9 Anxiety disorder, unspecified; Z95.4 Presence of other heart-valve replacement; Z79.82 Long term (current) use of aspirin; Z79.01 Long term (current) use of anticoagulants; Z79.51 Long term (current) use of inhaled steroids
CPT/HCPCS: 52204; 36415; 80048; 85610; 85730; 87086; 88305; 93005; J0690; J1100; J2003; J2405; J2704; J7120